=== PATIENT | male | born 1960 | race Caucasian/White ===

== ENCOUNTER 2023-04-27 19:04 | Emergency (ER) | payer BC, SELFPAY ==
[2023-04-27 19:05] VITALS: BP 168/88
[2023-04-27 19:24] LABS: % Basophils 1.1 % (0-2); % Eosinophils 3.3 % (0-6); % Immature Granulocytes 0.7 % (0-0.5); % Lymphocytes 28.8 % (20.5-51.1); % Monocytes 6.4 % (1.7-9.3); % Neutrophils 59.7 % (42.2-75.2); Absolute Basophils 0.1 10^3/uL (0-0.2); Absolute Eosinophils 0.3 10^3/uL (0-0.7); Absolute Immature Granulocytes 0.1 10^3/uL (0-0.05); Absolute Lymphocytes 2.2 10^3/uL (1.2-3.4); Absolute Monocytes 0.5 10^3/uL (0.1-0.6); Absolute Neutrophils 4.5 10^3/uL (1.4-6.5); Hematocrit 41.7 % (39.0-52.0); Hemoglobin 14.9 g/dL (13.0-18.0); Mean Corp Hgb Conc. 35.7 g/dL (33.0-37.0); Mean Corpuscular Hgb 31.8 pg (27.0-31.0); Mean Corpuscular Volume 88.9 fL (80.0-94.0); Mean Platelet Volume 8.3 fL (7.4-10.4); Nucleated Red Blood Cells % 0 % (-); Platelet Count 234 10^3/uL (130-400); Red Blood Cell Count 4.69 10^6/uL (4.70-6.10); Red Cell Dist. Width 12.8 % (11.5-14.5); White Blood Cell Count 7.5 10^3/uL (4.8-10.8)
[2023-04-27 19:40] LABS: ALT (SGPT) 30 U/L (0-50); AST (SGOT) 27 U/L (17-59); Albumin 4.7 g/dl (3.5-5.0); Alkaline Phosphatase 57 U/L (38-126); Blood Urea Nitrogen 33 mg/dl (9-20); Calcium 9.5 mg/dl (8.4-10.2); Carbon Dioxide 29 mmol/L (22-30); Chloride 103 mmol/L (98-107); Glucose 138 mg/dl (70-99); Potassium 4.5 mmol/L (3.5-5.1); Sodium 141 mmol/L (135-145); Total Bilirubin 0.4 mg/dl (0.2-1.3); eGFR > 60.00
[2023-04-27 19:47] LABS: Troponin I < 0.012 ng/ml
[2023-04-27 21:34] VITALS: BP 140/77
[2023-04-27] MEDS: TORADOL 15 MG IV (22:26)
[2023-04-27 22:28] VITALS: BP 121/75
[2023-04-27 23:00] VITALS: BP 138/76
--- NOTE | 2023-04-27 23:52 | ED.GENMED ---
History of Present Illness
General
Chief Complaint: Chest Pain
Source: patient and significant other
Time Seen by Provider: 04/27/23 21:31
Travel History
Have you had any contact with someone who has COVID-19?: No
Do you have any symptoms of coronavirus? Fever > 100 degrees, chills, cough, shortness of breath, sore throat, loss of taste or smell, muscle aches, or headache?: No
History of Present Illness
History of Present Illness:
62-year-old male who presents with pain in his right chest toward his right armpit. Patient states he has been lifting heavy at work was not sure if he strained some. Started feel discomfort around noon. Around dinner he then developed pain when
he swallowed. Also had pain with movement and breathing. Patient states the pain was also worse when he laid back. He denies shortness of breath. No left-sided or central chest pain. No numbness or tingling. No palpitations. No fevers. No
rash.
Past History
Past History
ED Past Medical History: Asthma, CAD, Hypercholesterolemia and Other (History of depression)
ED Past Surgical History: Other (The patient has a history of sinus surgery 20 years ago as well as 2010, and carpal tunnel surgery in 2011)
Social History
Tobacco: Non-smoker
Alcohol: None
Drug: None
Personal:
Living: with family
Employment: Employed
Family History
Family History: Diabetes and Hypertension
Phy Exam
Physical Exam
Physical Exam:
CONSTITUTIONAL Patient alert and oriented to person, place and time. Well-appearing. Vital signs reviewed.
HEAD atraumatic, normocephalic.
EYES eyelids normal to inspection, Pupils equally round and reactive to light, Extraocular muscles intact, Conjunctiva normal, Sclera normal.
NECK normal range of motion, Trachea midline, no jugular venous distention.
RESPIRATORY CHEST No respiratory distress noted, Chest expansion equal, Bilateral breath sounds clear. Moderate right chest wall tenderness up towards the right axilla and right pectoralis major region. Pain with pushing away against force with
the right hand.
CARDIOVASCULAR regular rate and rhythm, Heart sounds normal.
ABDOMEN abdomen nontender, Bowel sounds normal. No distention.
BACK normal inspection, no obvious deformities
UPPER EXTREMITY range of motion normal, Motor strength normal, no cyanosis, no edema.
LOWER EXTREMITY range of motion normal, Motor strength normal, no cyanosis, no edema.
NEURO Speech normal, No focal motor deficits, Daniel coma scale 15, Memory normal, Cranial Nerves intact to screening exam.
SKIN skin warm, dry, and normal in color.
PSYCHIATRIC patient oriented to person place and time, Normal affect.
Scores
Heart Score for Chest Pain Patients
STEMI patient?: Not applicable
Course
Orders/Labs/Results
Orders:
Orders
04/27/23 19:09
Electrocardiogram (*1) Urgent
Reason for Study: Chest Pain
EKG- Treatment ONCE
04/27/23 19:19
Complete Blood Count/With Diff Urgent
Comprehensive Metabolic Panel Urgent
Troponin I Urgent
04/27/23 21:31
CR Chest - 2 Views Urgent
Comment:
Reason For Exam: cp
04/27/23 22:07
Ketorolac [Toradol] 15 mg IV NOW STA
Abnormal Lab Results
04/27/23
19:19
RBC 4.69 L 10^6/uL
(4.70-6.10)
MCH 31.8 H pg
(27.0-31.0)
Abs Immat Gran (auto) 0.1 H 10^3/uL
(0-0.05)
Immature Gran % 0.7 H %
(0-0.5)
BUN 33 H mg/dl
(9-20)
Glucose 138 H mg/dl
(70-99)
04/27/23 19:19
03/07/24 19:19
Vital Signs
Initial and Last Documented VS:
Initial Vital Signs
Temp Pulse Resp BP Pulse Ox
97.9 F 74 16 168/88 98
04/27/23 19:05 04/27/23 19:05 04/27/23 19:05 04/27/23 19:05 04/27/23 19:05
Last Documented Vital Signs
Temp Pulse Resp BP Pulse Ox
97.9 F 67 18 138/76 98
04/27/23 19:05 04/28/23 00:05 04/28/23 00:05 04/27/23 23:00 04/27/23 19:05
MDM/Problems Addressed
MDM/Problems Addressed:
Chest wall pain
*Radiology
Radiology exam reviewed: radiology read reviewed
*Pulse Oximetry
Patient hypoxic: no
*EKG
Interpreted by ED Provider?: Yes
Interpretation: normal
Rate: normal
Rhythm: sinus
[place]: normal axis
Interval: normal interval
Ischemia: no ischemia
*Acquisition Professional Interpretation
Rate: normal
Interpretation: normal
Rhythm: sinus
*Critical Care Note
Total Time (30-74mins, 75-104mins- exclusive of procedures): Not Applicable
Data Reviewed
Source: patient
Further Testing Considered But Not Given:
Considered PE study but no tachycardia. No tachypnea. No hypoxia. No risk factors.
Patient Management
Escalation/DeEscalation of care consider admission/obs:
Patient appears quite well. EKG and troponin negative despite pain all day. Pain is clearly reproducible. Question musculoskeletal etiology. Okay for discharge
ED Attending Note
-
Portions of this chart may have been created with voice recognition software.� Occasional wrong word or��sound alike� substitutions may have occurred due to the inherent limitations of voice recognition software.
Discharge Plan
Departure
Patient Disposition: Home (Routine Discharge)
Date of Disposition: 04/27/23
Time of Disposition: 23:52
Patient with high blood pressure during this ER visit?: No
Discharge Problem:
Atypical chest pain
Instructions: Chest Pain That Is Not Caused by the Heart (DC)
Prescriptions:
No Action
atorvastatin 40 MG tablet
40 mg PO AMHS
cephalexin 500 MG capsule
500 mg PO QID 4 Days 0RF
lorazepam 1 MG tablet
1 mg PO TIDPRN PRN (Reason: pain/spasms) Qty: 40 0RF
hydrocodone-acetaminophen [[place]] 1 EACH tablet
1 ea PO Q6HPRN PRN (Reason: pain) 10 Days Qty: 30 0RF
amlodipine 2.5 MG tablet
2.5 mg PO BID Qty: 60 2RF
Rx Instructions:
hold systolic blood pressure <130
aspirin 81 MG tablet,delayed release (DR/EC)
81 mg PO DAILY Qty: 1 0RF
Rx Instructions:
RESUME 02/20/2018
hydrocodone-acetaminophen [[place]] 1 EACH tablet
1 ea PO Q4HPRN PRN (Reason: severe pain) Qty: 10 0RF
cyclobenzaprine 10 MG tablet
10 mg PO TIDPRN PRN (Reason: back pain) Qty: 15 0RF
prednisone 50 MG tablet
50 mg PO DAILY Qty: 5 0RF
ibuprofen 800 MG tablet
800 mg PO Q6HPRN PRN (Reason: pain) Qty: 30 0RF
Referrals:
Destiny Douglas CRNP [Family Provider] -
Activity Restrictions/Additional Instructions:
Please use ibuprofen as needed for pain control. Return immediately for worsening pain, shortness of breath, vomiting, weakness of any kind or any other concerns.
Interventions
Interventions:
*Risk Screen - Suicide Last Done: 04/27/23 19:05
*General Assessment Last Done: 04/27/23 22:30
*Neglect/Abuse Screening Last Done: 04/27/23 21:57
ED- Fall Risk Assessment Last Done: 04/28/23 00:11
*ED COVID-19 Vaccine History Last Done: 04/27/23 19:05
*Nursing Disposition Last Done: 04/28/23 00:11
ED- Cardiac Assessment Last Done: 04/27/23 21:56
Discharge Date and Time
Discharge Date/Time: 04/28/23 00:12
== END 2023-04-28 00:12 | disposition home or self-care (01) ==
LOC: EMR 19:04
PROVIDERS: Emergency Medicine; EMERGENCY PHYSICIAN Emergency Medicine; FAMILY PHYSICIAN Nurse Practitioner Family
DX: R07.89 Other chest pain (principal); J45.909 Unspecified asthma, uncomplicated; I25.10 Atherosclerotic heart disease of native coronary artery without angina pectoris; E78.00 Pure hypercholesterolemia, unspecified; F32.A Depression, unspecified
CPT/HCPCS: 99283; 96374; 71046; 80053; 84484; 85025; 93005

== ENCOUNTER → 2023-05-24 12:11 | Outpatient (REF) | payer BC, SELFPAY | LOC: DHCBC/DCA 12:11 | PROVIDERS: ATTENDING PHYSICIAN Internal Medicine Cardiovascular Disease; FAMILY PHYSICIAN Family Medicine | DX: R06.00 Dyspnea, unspecified (principal) | CPT/HCPCS: 78452; 93017; A9500; J2785 ==

== ENCOUNTER → 2023-05-30 06:43 | Outpatient (REF) | payer BC, SELFPAY | LOC: RAD 06:43 | PROVIDERS: ATTENDING PHYSICIAN Surgery; FAMILY PHYSICIAN Nurse Practitioner Family | DX: R10.11 Right upper quadrant pain (principal) | CPT/HCPCS: 76700 ==

== ENCOUNTER 2023-06-02 06:02 | Day surgery (SDC) | payer BC, SELFPAY ==
[2023-05-30 12:52] VITALS: BMI 40.0
[2023-05-30 13:15] LABS: % Basophils 0.7 % (0-2); % Eosinophils 2.3 % (0-6); % Immature Granulocytes 0.4 % (0-0.5); % Lymphocytes 22.1 % (20.5-51.1); % Monocytes 7.8 % (1.7-9.3); % Neutrophils 66.7 % (42.2-75.2); Absolute Basophils 0.1 10^3/uL (0-0.2); Absolute Eosinophils 0.2 10^3/uL (0-0.7); Absolute Lymphocytes 1.5 10^3/uL (1.2-3.4); Absolute Monocytes 0.5 10^3/uL (0.1-0.6); Absolute Neutrophils 4.6 10^3/uL (1.4-6.5); Hematocrit 42.1 % (39.0-52.0); Mean Corp Hgb Conc. 35.6 g/dL (33.0-37.0); Mean Corpuscular Hgb 31.5 pg (27.0-31.0); Mean Corpuscular Volume 88.4 fL (80.0-94.0); Mean Platelet Volume 8.5 fL (7.4-10.4); Nucleated Red Blood Cells % 0 % (-); Platelet Count 222 10^3/uL (130-400); Red Blood Cell Count 4.76 10^6/uL (4.70-6.10); Red Cell Dist. Width 12.7 % (11.5-14.5); White Blood Cell Count 6.9 10^3/uL (4.8-10.8)
[2023-05-30 13:50] LABS: ALT (SGPT) 36 U/L (0-50); AST (SGOT) 28 U/L (17-59); Albumin 4.6 g/dl (3.5-5.0); Alkaline Phosphatase 57 U/L (38-126); Blood Urea Nitrogen 33 mg/dl (9-20); Calcium 9.4 mg/dl (8.4-10.2); Carbon Dioxide 24 mmol/L (22-30); Chloride 106 mmol/L (98-107); Estimated Creatinine Clearance 99 ml/min; Glucose 106 mg/dl (70-99); Potassium 4.4 mmol/L (3.5-5.1); Sodium 136 mmol/L (135-145); Total Bilirubin 0.4 mg/dl (0.2-1.3); Total Protein 6.9 g/dl (6.3-8.2); eGFR > 60.00
[2023-06-02] VITALS (8 sets, daily range): BP systolic 115–141; BP diastolic 69–87; BMI 38.4
[2023-06-02] MEDS: NSS 324 ML IV (06:49)
--- NOTE | 2023-06-02 08:39 | ITS.CL.CATH ---
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
Cardiac Catheterization
Procedure Report:
CARDIAC CATHETERIZATION REPORT
Date of Procedure: 06/02/2023
Referring: Regino Bowling MD
Indication: Ischemic stress test with exertional dyspnea
HEMODYNAMIC DATA
AO: 110/70
LV: 124/18
Pullback done twice shows mean gradient of 11 mmHg consistent with mild
LEFT VENTRICULOGRAPHY: Normal ventricular wall motion with EF 62%
CORONARY ANGIOGRAPHY
Dominance: Right
Left Main: Normal
LAD: 30% mid stenosis with 40% mid to distal stenosis and multiple lesions to 50% in the distal and apical LAD. D1 and D2 have trivial luminal disease
Circumflex: There is a large ramus intermedius with 40-50% ostial/proximal stenosis. This vessel bifurcates distally and there is a 50% stenosis in the much smaller daughter branch. The circumflex proper has mild luminal irregularities. OM1 is
tiny with ostial disease. OM 2 and OM 3 are medium sized vessels and the circumflex terminates with a small left posterolateral branch.
RCA: The RCA is dominant. There is 30% mid stenosis. The medium sized RPDA has 60-70% ostial stenosis. The RCA terminates with a medium sized posterolateral branch with 30% proximal stenosis. There is a RV branch originating from the very
proximal RCA which is severe segmental disease
Closure Device: None-the procedure was performed via the right radial artery. The Pete's test was normal prior to the procedure.
Radiation (mGy): 570
DAP (cm2.Gy): 56.1
Fluoroscopy time: 4.4 minutes
CONCLUSIONS
1: Moderate triple-vessel CAD as described
2: Normal left ventricular function with EF 62%
3. Possible mild aortic stenosis-this should be evaluated with echocardiography. Last echo in 2019 did not suggest an aortic valve gradient
4. Recommend medical therapy with attention to aggressive risk factor modification. Target LDL for Tuan should be less than 55
Copy to: Regino Bowling MD, Blanca Quintana,
Regino Bowling MD, [facility], [facility]
== END 2023-06-02 11:30 | disposition home or self-care (01) ==
LOC: CATH 06:02
PROVIDERS: ATTENDING PHYSICIAN Internal Medicine Cardiovascular Disease; FAMILY PHYSICIAN Family Medicine
DX: I25.10 Atherosclerotic heart disease of native coronary artery without angina pectoris (principal); R06.09 Other forms of dyspnea; R94.39 Abnormal result of other cardiovascular function study; E78.5 Hyperlipidemia, unspecified; I10 Essential (primary) hypertension; Z79.82 Long term (current) use of aspirin; K21.9 Gastro-esophageal reflux disease without esophagitis
CPT/HCPCS: 36415; 80053; 85025; 93005; 93458; C1894; Q9967

== ENCOUNTER → 2023-06-13 15:38 | Outpatient (REF) | payer BC, SELFPAY | LOC: RCS 15:38 | PROVIDERS: ATTENDING PHYSICIAN Internal Medicine Cardiovascular Disease; FAMILY PHYSICIAN Family Medicine | DX: R06.00 Dyspnea, unspecified (principal); I10 Essential (primary) hypertension | CPT/HCPCS: 93306 ==

== ENCOUNTER → 2023-06-19 06:15 | Outpatient (REF) | payer BC, SELFPAY ==
[2023-06-19 07:01] LABS: % Basophils 0.5 % (0-2); % Eosinophils 3.8 % (0-6); % Immature Granulocytes 0.9 % (0-0.5); % Monocytes 9.7 % (1.7-9.3); % Neutrophils 54.1 % (42.2-75.2); Absolute Eosinophils 0.2 10^3/uL (0-0.7); Absolute Immature Granulocytes 0.1 10^3/uL (0-0.05); Absolute Lymphocytes 1.8 10^3/uL (1.2-3.4); Absolute Monocytes 0.6 10^3/uL (0.1-0.6); Absolute Neutrophils 3.1 10^3/uL (1.4-6.5); Hematocrit 42.6 % (39.0-52.0); Mean Corp Hgb Conc. 35.2 g/dL (33.0-37.0); Mean Corpuscular Hgb 31.2 pg (27.0-31.0); Mean Corpuscular Volume 88.6 fL (80.0-94.0); Mean Platelet Volume 8.7 fL (7.4-10.4); Nucleated Red Blood Cells % 0 % (-); Platelet Count 217 10^3/uL (130-400); Red Blood Cell Count 4.81 10^6/uL (4.70-6.10); Red Cell Dist. Width 12.5 % (11.5-14.5); White Blood Cell Count 5.8 10^3/uL (4.8-10.8)
[2023-06-19 07:28] LABS: ALT (SGPT) 38 U/L (0-50); AST (SGOT) 28 U/L (17-59); Albumin 4.4 g/dl (3.5-5.0); Alkaline Phosphatase 56 U/L (38-126); Blood Urea Nitrogen 26 mg/dl (9-20); Calcium 9.6 mg/dl (8.4-10.2); Carbon Dioxide 22 mmol/L (22-30); Chloride 108 mmol/L (98-107); Glucose 143 mg/dl (70-99); HDL Cholesterol 63 mg/dl; LDL Cholesterol, Calculated 58 mg/dl; Potassium 4.1 mmol/L (3.5-5.1); Sodium 138 mmol/L (135-145); Total Bilirubin 0.5 mg/dl (0.2-1.3); Total Cholesterol 137 mg/dl (50-199); Total Protein 6.6 g/dl (6.3-8.2); Triglyceride 83 mg/dl (10-149); Very Low Density Lipoprotein 16 mg/dl (0-30); eGFR > 60.00
[2023-06-19 07:32] LABS: C-Reactive Protein < 5.00 mg/L (0.0-10.00)
[2023-06-19 07:51] LABS: Erythrocyte Sed Rate 7 mm/hour (0-20)
[2023-06-19 08:10] LABS: PSA, Total - Screen 0.67 ng/ml (0.0-4.0); TSH Reflex To Free T4 1.19 uIU/ml (0.47-4.68)
[2023-06-19 09:30] LABS: Glycohemoglobin (HgbA1c) 5.9 % (4.0-5.6)
== END ==
LOC: REG 06:15
PROVIDERS: ATTENDING PHYSICIAN Internal Medicine Cardiovascular Disease; FAMILY PHYSICIAN Nurse Practitioner Family; REFERRING PHYSICIAN Internal Medicine Rheumatology
DX: Z00.00 Encounter for general adult medical examination without abnormal findings (principal); E78.5 Hyperlipidemia, unspecified; M06.09 Rheumatoid arthritis without rheumatoid factor, multiple sites
CPT/HCPCS: 36415; 80053; 80061; 83036; 84443; 85025; 85652; 86140; G0103

== ENCOUNTER → 2023-09-11 06:32 | Outpatient (REF) | payer BC, SELFPAY ==
[2023-09-11 07:01] LABS: % Basophils 0.8 % (0-2); % Eosinophils 3.9 % (0-6); % Immature Granulocytes 0.7 % (0-0.5); % Lymphocytes 22.7 % (20.5-51.1); % Monocytes 9.9 % (1.7-9.3); Absolute Basophils 0.1 10^3/uL (0-0.2); Absolute Eosinophils 0.2 10^3/uL (0-0.7); Absolute Lymphocytes 1.4 10^3/uL (1.2-3.4); Absolute Monocytes 0.6 10^3/uL (0.1-0.6); Absolute Neutrophils 3.7 10^3/uL (1.4-6.5); Hematocrit 42.2 % (39.0-52.0); Hemoglobin 14.8 g/dL (13.0-18.0); Mean Corp Hgb Conc. 35.1 g/dL (33.0-37.0); Mean Corpuscular Hgb 32.5 pg (27.0-31.0); Mean Corpuscular Volume 92.5 fL (80.0-94.0); Mean Platelet Volume 8.7 fL (7.4-10.4); Nucleated Red Blood Cells % 0 % (-); Platelet Count 217 10^3/uL (130-400); Red Blood Cell Count 4.56 10^6/uL (4.70-6.10); Red Cell Dist. Width 13.5 % (11.5-14.5)
[2023-09-11 07:26] LABS: ALT (SGPT) 30 U/L (0-50); AST (SGOT) 24 U/L (17-59); Albumin 4.5 g/dl (3.5-5.0); Alkaline Phosphatase 59 U/L (38-126); Blood Urea Nitrogen 27 mg/dl (9-20); Calcium 9.9 mg/dl (8.4-10.2); Carbon Dioxide 25 mmol/L (22-30); Chloride 108 mmol/L (98-107); Glucose 119 mg/dl (70-99); HDL Cholesterol 50 mg/dl; LDL Cholesterol, Calculated 79 mg/dl; Potassium 4.4 mmol/L (3.5-5.1); Sodium 142 mmol/L (135-145); Total Bilirubin 0.4 mg/dl (0.2-1.3); Total Cholesterol 156 mg/dl (50-199); Total Protein 6.4 g/dl (6.3-8.2); Triglyceride 137 mg/dl (10-149); Very Low Density Lipoprotein 27 mg/dl (0-30); eGFR > 60.00
[2023-09-11 07:29] LABS: C-Reactive Protein < 5.00 mg/L (0.0-10.00)
[2023-09-11 09:05] LABS: Glycohemoglobin (HgbA1c) 5.5 % (4.0-5.6)
[2023-09-11 10:51] LABS: Erythrocyte Sed Rate 9 mm/hour (0-20)
== END ==
LOC: REG 06:32
PROVIDERS: ATTENDING PHYSICIAN Internal Medicine Rheumatology; FAMILY PHYSICIAN Nurse Practitioner Family
DX: R73.03 Prediabetes (principal); E78.2 Mixed hyperlipidemia; M06.09 Rheumatoid arthritis without rheumatoid factor, multiple sites
CPT/HCPCS: 36415; 80053; 80061; 83036; 85025; 85652; 86140

== ENCOUNTER → 2023-11-29 16:58 | Outpatient (REF) | payer BC, SELFPAY | LOC: RAD 16:58 | PROVIDERS: ATTENDING PHYSICIAN Nurse Practitioner Family | DX: S93.402A Sprain of unspecified ligament of left ankle, initial encounter (principal) | CPT/HCPCS: 73610; 73630 ==

== ENCOUNTER 2023-12-16 09:53 | Emergency (ER) | payer BC, SELFPAY ==
[2023-12-16 09:54] VITALS: BP 157/98
[2023-12-16 11:52] VITALS: BP 149/89
--- NOTE | 2023-12-16 15:02 | ED.GENMED ---
History of Present Illness
General
Chief Complaint: Musculo-Skeletal Complaint
Source: patient
Exam Limitations: none
Time Seen by Provider: 12/16/23 10:11
Nursing documentation reviewed up to this point in time: agreed with
History of Present Illness
History of Present Illness:
63 y/o M with L foot pain x 2 weeks
was here after foot injury 2 weeks ago and had xrays ordered by PCP showing some bone spurs and OA and calcific tendinitis
pt was wearing a home brace which was helping
he was putting ice on it etc
and feeling better
then last night got out of his car at a friends house and went to step on a step and misjudged causing him to tweak it and he felt a pop underneath the foot and since has had a lot of pain ful weight bearing and some swelling
no numbness/tingling
has appt with dr. ramirez next week
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
Past History
Past History
ED Past Medical History: Asthma, CAD, Hypercholesterolemia and Other (History of depression)
ED Past Surgical History: Other (The patient has a history of sinus surgery 20 years ago as well as 2010, and carpal tunnel surgery in 2011)
Social History
Tobacco: Non-smoker
Alcohol: None
Drug: None
Personal:
Living: with family
Employment: Employed
Family History
Family History: Diabetes and Hypertension
Review of Systems
Review of Systems
Allergies reviewed?: Yes
All Other Systems: Not applicable
Phy Exam
Physical Exam
Physical Exam:
GENERAL: Alert , in no apparent distress, comfortable at rest
HEAD: NCAT
CV: 2+ DP PULSES B/L
NEUROLOGICAL: Alert and oriented, no focal neuro deficits, , 5/5 strength, sensation intact, ambulation slight limp right leg
SKIN: Warm and dry,
MUSCULOSKELETAL: ankle slightly swollen L with some tenderness medial atnerior mall tip
most tenderness is arch of the midfoot and the insertion point o fplantar fascia; mild STS
no bruising
normal perfusion
normal strength
full ROM
PSYCH: Normal and appropriate interaction.
Course
Orders/Labs/Results
Orders:
Orders
12/16/23 09:57
Foot, Left 3 View [CR Foot - Left Min 3 Views] Urgent
Comment:
Reason For Exam: injury
12/16/23 11:05
Ankle, left 3 view CR [CR Ankle - Left Min 3 Views ] Urgent
Comment:
Reason For Exam: left ankle pain
Vital Signs
Initial and Last Documented VS:
Initial Vital Signs
Temp Pulse Resp BP Pulse Ox
98.4 F 60 16 157/98 98
12/16/23 09:54 12/16/23 09:54 12/16/23 09:54 12/16/23 09:54 12/16/23 09:54
Last Documented Vital Signs
Temp Pulse Resp BP Pulse Ox
98.4 F 77 16 149/89 99
12/16/23 09:54 12/16/23 11:52 12/16/23 11:52 12/16/23 11:52 12/16/23 11:52
MDM/Problems Addressed
Differential Diagnosis Includes:
sprain, plantar fasciitis, calcific tendinitis
MDM/Problems Addressed:
63 y/o M with foot pain after missing a step
alreaady dealing with a foot injury which was feeling better until last night
has mostly plantar pain
some STS
normal strnegth and sensation
tender plantar fascia
mild arch tenderness and ankle tenderness
xryas indep reviewed, has a lot of spurs but no fx
did well in a short ankle boot
f/u ortho
appreciate chronic HTN
likeyl in setting of pain
astymaptmatic
stable
*Critical Care Note
Total Time (30-74mins, 75-104mins- exclusive of procedures): Not Applicable
ED Attending Note
-
Portions of this chart may have been created with voice recognition software.� Occasional wrong word or��sound alike� substitutions may have occurred due to the inherent limitations of voice recognition software.
Discharge Plan
Departure
Patient Disposition: Home (Routine Discharge)
Date of Disposition: 12/16/23
Time of Disposition: 11:40
Patient with high blood pressure during this ER visit?: Yes
Condition: Fair
Covid-19: Not Applicable
Discharge Problem:
Plantar fasciitis, Foot sprain
Instructions: Heel Pain Caused by Plantar Fasciitis (DC), Sprain (DC)
Prescriptions:
No Action
aspirin 81 MG tablet,delayed release (DR/EC)
81 mg PO DAILY Qty: 1 0RF
meloxicam 15 mg Tablet
15 mg PO DAILY PRN (Reason: pain)
folic acid 1 mg Tablet
1 mg PO DAILY
magnesium 250 mg Tablet
250 mg PO DAILY
albuterol sulfate 90 mcg/actuation Hfa Aerosol Inhaler
1 puff INHALATION Q4 PRN (Reason: SOB)
omega-3 fatty acids Capsule
1,250 mg PO DAILY
Simponi ARIA 12.5 mg/mL Solution
212 mg IV Q8W
methotrexate 2.5 mg/mL Solution
20 mg PO QWEEK
atorvastatin 80 mg tablet
80 mg PO QPM Qty: 90 5RF
nitroglycerin 0.4 mg tablet, sublingual
0.4 mg sublingual [id number] PRN (Reason: chest pain) Qty: 25 5RF
Referrals:
Destiny Douglas CRNP [Family Provider] -
Stand Alone Forms: Return to Work
Activity Restrictions/Additional Instructions:
Your foot pain could be from a combination of plantar fasciitis as well as a foot sprain. Ice off-and-on today.
Try to stay off of it. Use the boot when you walk around. Follow-up with Dr. Jose as planned. Take Tylenol for pain 3 times a day.
Return for any concerns
Interventions
Interventions:
*Risk Screen - Suicide Last Done: 12/16/23 09:54
*General Assessment Last Done: 12/16/23 09:54
*Neglect/Abuse Screening Last Done: 12/16/23 09:54
ED- Fall Risk Assessment Last Done: 12/16/23 10:12
*ED COVID-19 Vaccine History Last Done: 12/16/23 10:11
*Nursing Disposition Last Done: 12/16/23 11:52
ED-Musculoskeletal Assessment Last Done: 12/16/23 10:12
Discharge Date and Time
Discharge Date/Time: 12/16/23 11:53
Print Language: FAROESE
== END 2023-12-16 11:53 | disposition home or self-care (01) ==
LOC: EMR 09:53
PROVIDERS: EMERGENCY PHYSICIAN Emergency Medicine; FAMILY PHYSICIAN Nurse Practitioner Family
DX: M72.2 Plantar fascial fibromatosis (principal); S93.602A Unspecified sprain of left foot, initial encounter; X50.1XXA Overexertion from prolonged static or awkward postures, initial encounter; M77.8 Other enthesopathies, not elsewhere classified; M65.272 Calcific tendinitis, left ankle and foot; M19.90 Unspecified osteoarthritis, unspecified site; J45.909 Unspecified asthma, uncomplicated; I25.10 Atherosclerotic heart disease of native coronary artery without angina pectoris; F32.A Depression, unspecified; K57.90 Diverticulosis of intestine, part unspecified, without perforation or abscess without bleeding; I10 Essential (primary) hypertension; Z86.73 Personal history of transient ischemic attack (TIA), and cerebral infarction without residual deficits
CPT/HCPCS: 99283; 73610; 73630

== ENCOUNTER 2023-12-21 16:47 | Outpatient (RCR) | payer BC, SELFPAY | END 2023-12-21 23:59 | disposition home or self-care (01) | LOC: RPT 16:47 | PROVIDERS: ATTENDING PHYSICIAN Nurse Practitioner Family | DX: S93.402S Sprain of unspecified ligament of left ankle, sequela (principal); Z73.6 Limitation of activities due to disability | CPT/HCPCS: 97140; 97162; 97530 ==

== ENCOUNTER 2024-01-17 14:51 | Outpatient (RCR) | payer BC, SELFPAY | END 2024-01-17 23:59 | disposition home or self-care (01) | LOC: RPT 14:51 | PROVIDERS: ATTENDING PHYSICIAN Nurse Practitioner Family | DX: S93.402S Sprain of unspecified ligament of left ankle, sequela (principal); Z73.6 Limitation of activities due to disability | CPT/HCPCS: 97110; 97112; 97140; 97530 ==

== ENCOUNTER → 2024-02-19 12:08 | Outpatient (REF) | payer BC, SELFPAY ==
[2024-02-19 13:08] LABS: Hematocrit 46.4 % (39.0-52.0); Hemoglobin 16.1 g/dL (13.0-18.0); Mean Corp Hgb Conc. 34.7 g/dL (33.0-37.0); Mean Corpuscular Hgb 32.7 pg (27.0-31.0); Mean Corpuscular Volume 94.3 fL (80.0-94.0); Mean Platelet Volume 8.9 fL (7.4-10.4); Platelet Count 233 10^3/uL (130-400); Red Blood Cell Count 4.92 10^6/uL (4.70-6.10); Red Cell Dist. Width 12.8 % (11.5-14.5); White Blood Cell Count 8.6 10^3/uL (4.8-10.8)
[2024-02-19 13:32] LABS: C-Reactive Protein < 5.00 mg/L (0.0-10.00)
[2024-02-19 13:45] LABS: ALT (SGPT) 37 U/L (0-50); AST (SGOT) 27 U/L (17-59); Albumin 5.1 g/dl (3.5-5.0); Alkaline Phosphatase 54 U/L (38-126); Blood Urea Nitrogen 29 mg/dl (9-20); Calcium 10.2 mg/dl (8.4-10.2); Carbon Dioxide 23 mmol/L (22-30); Chloride 103 mmol/L (98-107); Glucose 107 mg/dl (70-99); Potassium 4.2 mmol/L (3.5-5.1); Sodium 138 mmol/L (135-145); Total Bilirubin 0.4 mg/dl (0.2-1.3); Total Protein 7.3 g/dl (6.3-8.2); eGFR > 60.00
[2024-02-19 14:15] LABS: Erythrocyte Sed Rate 9 mm/hour (0-20)
== END ==
LOC: REG 12:08
PROVIDERS: ATTENDING PHYSICIAN Internal Medicine Rheumatology; FAMILY PHYSICIAN Nurse Practitioner Family
DX: M06.09 Rheumatoid arthritis without rheumatoid factor, multiple sites (principal)
CPT/HCPCS: 36415; 80053; 85027; 85652; 86140

== ENCOUNTER 2024-02-19 15:07 | Outpatient (RCR) | payer BC, SELFPAY | END 2024-02-19 23:59 | disposition home or self-care (01) | LOC: RPT 15:07 | PROVIDERS: ATTENDING PHYSICIAN Nurse Practitioner Family | DX: S93.402S Sprain of unspecified ligament of left ankle, sequela (principal); Z73.6 Limitation of activities due to disability | CPT/HCPCS: 97110; 97112; 97140 ==

== ENCOUNTER 2024-03-19 16:13 | Outpatient (RCR) | payer BC, SELFPAY | END 2024-03-19 23:59 | disposition home or self-care (01) | LOC: RPT 16:13 | PROVIDERS: ATTENDING PHYSICIAN Nurse Practitioner Family | DX: S93.402S Sprain of unspecified ligament of left ankle, sequela (principal); Z73.6 Limitation of activities due to disability | CPT/HCPCS: 97110; 97140 ==

== ENCOUNTER 2024-04-03 11:08 | Emergency (ER) | payer SELFPAY ==
[2024-04-03 11:14] VITALS: BP 144/87
--- NOTE | 2024-04-03 13:29 | ED.GENMED ---
History of Present Illness
General
Chief Complaint: Head Injury
Source: patient
Exam Limitations: none
Time Seen by Provider: 04/03/24 11:41
Nursing documentation reviewed up to this point in time: agreed with
History of Present Illness
History of Present Illness:
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 He denies loss of consciousness but afterwards felt nauseous and felt like he had
difficulty focusing. Does have a headache. He is on blood thinners. He denies any lacerations.He does feel sore in his neck but has history of neck surgery in the past.
Past History
Past History
ED Past Medical History: Asthma, CAD, Hypercholesterolemia and Other (History of depression)
ED Past Surgical History: Other (The patient has a history of sinus surgery 20 years ago as well as 2010, and carpal tunnel surgery in 2011)
Social History
Tobacco: Non-smoker
Alcohol: None
Drug: None
Personal:
Living: with family
Employment: Employed
Family History
Family History: Diabetes and Hypertension
Review of Systems
Review of Systems
Allergies reviewed?: Yes
All Other Systems: ROS reviewed and negative except as documented in HPI and ROS
Constitutional: Reports no symptoms
EENT: Reports other (had difficulty focusing )
Respiratory: Reports no symptoms
Cardiac: Reports no symptoms
ABD/GI: Reports nausea
: Reports no symptoms
Musculoskeletal: Reports neck pain (neck is sore )
Skin: Reports no symptoms
Psychiatric: Reports no symptoms
Phy Exam
General Physical Exam
General Presentation: no apparent distress
General age: appears stated age
General Skin: warm and dry
General Habitus: normal
General Mental: alert
General Hydration: appears well hydrated
Eye Exam
Eye Exam: PERRL and EOMI
Eye Exam General: PERRL: bilateral and EOM intact: bilateral
Pupil Exam: Bilateral: round and reactive
Neurological Exam
Neurological Exam: alert, oriented x3, no motor deficits and no sensory deficits
Musculoskeletal Exam
Musculoskeletal Exam: full ROM and other (Mildly sore to posterior neck muscles)
Skin Exam
Skin Exam: normal color and warm/dry
Psychiatric Exam
Psychiatric Exam: normal mood/affect
Course
Orders/Labs/Results
Orders:
Orders
04/03/24 12:59
CT Head W/o Iv Contrast Urgent
Comment:
Reason For Exam: trauma
04/03/24 13:00
CT Cervical Spine W/o Iv Contr Urgent
Comment:
Reason For Exam: trauma
04/03/24 14:22
Acetaminophen [Tylenol] 1,000 mg PO NOW STA
Vital Signs
Initial and Last Documented VS:
Initial Vital Signs
Temp Pulse Resp BP Pulse Ox
98.5 F 70 16 144/87 99
04/03/24 11:14 04/03/24 11:14 04/03/24 11:14 04/03/24 11:14 04/03/24 11:14
Last Documented Vital Signs
Temp Pulse Resp BP Pulse Ox
98.5 F 70 16 144/87 99
04/03/24 11:14 04/03/24 11:14 04/03/24 11:14 04/03/24 11:14 04/03/24 11:14
MDM/Problems Addressed
Differential Diagnosis Includes:
Not limited to intracranial hemorrhage concussion, cervical strain versus fracture
MDM/Problems Addressed:
Symptoms are consistent with mild concussion CT head and cervical spine negative for acute findings
Will DC with supportive care for concussion. Patient is on meloxicam therefore will take Tylenol for symptoms. He is not on blood thinners .he has a normal neurologic exam
*Radiology
Radiology exam reviewed: radiology read reviewed
*Pulse Oximetry
Patient hypoxic: no
*Critical Care Note
Total Time (30-74mins, 75-104mins- exclusive of procedures): Not Applicable
ED Attending Note
-
Portions of this chart may have been created with voice recognition software.� Occasional wrong word or��sound alike� substitutions may have occurred due to the inherent limitations of voice recognition software.
Discharge Plan
Departure
Patient Disposition: Home (Routine Discharge)
Date of Disposition: 04/03/24
Time of Disposition: 14:26
Patient with high blood pressure during this ER visit?: Yes
Condition: Fair
Covid-19: Not Applicable
Discharge Problem:
Concussion, Cervical muscle strain
Instructions: Concussion, Adult (DC), Cervical Sprain ED, BLOOD PRESSURE
Prescriptions:
No Action
aspirin 81 MG tablet,delayed release (DR/EC)
81 mg PO DAILY Qty: 1 0RF
meloxicam 15 mg Tablet
15 mg PO DAILY PRN (Reason: pain)
folic acid 1 mg Tablet
1 mg PO DAILY
magnesium 250 mg Tablet
250 mg PO DAILY
albuterol sulfate 90 mcg/actuation Hfa Aerosol Inhaler
1 puff INHALATION Q4 PRN (Reason: SOB)
omega-3 fatty acids Capsule
1,250 mg PO DAILY
Simponi ARIA 12.5 mg/mL Solution
212 mg IV Q8W
methotrexate 2.5 mg/mL Solution
20 mg PO QWEEK
atorvastatin 80 mg tablet
80 mg PO QPM Qty: 90 5RF
nitroglycerin 0.4 mg tablet, sublingual
0.4 mg sublingual [id number] PRN (Reason: chest pain) Qty: 25 5RF
Referrals:
Destiny Douglas CRNP [Family Provider] -
Stand Alone Forms: Return to Work
Activity Restrictions/Additional Instructions:
As discussed you may take Tylenol for symptoms. Follow-up with work health in the next 1 to 2 days. Return if any worsening of symptoms.
Interventions
Interventions:
*Risk Screen - Suicide Last Done: 04/03/24 11:14
*General Assessment Last Done: 04/03/24 11:14
*Neglect/Abuse Screening Last Done: 04/03/24 11:14
Discharge Date and Time
Print Language: SWEDISH
[2024-04-03] MEDS: TYLENOL 1000 MG PO (15:20)
== END 2024-04-03 15:29 | disposition home or self-care (01) ==
LOC: EMR 11:08
PROVIDERS: EMERGENCY PHYSICIAN Student in an Organized Health Care Education/Training Program; FAMILY PHYSICIAN Nurse Practitioner Family
DX: S06.0XAA Concussion with loss of consciousness status unknown, initial encounter (principal); S16.1XXA Strain of muscle, fascia and tendon at neck level, initial encounter; W22.8XXA Striking against or struck by other objects, initial encounter; J45.909 Unspecified asthma, uncomplicated; I25.10 Atherosclerotic heart disease of native coronary artery without angina pectoris; E78.00 Pure hypercholesterolemia, unspecified; Z79.01 Long term (current) use of anticoagulants; Z82.49 Family history of ischemic heart disease and other diseases of the circulatory system; Z83.3 Family history of diabetes mellitus
CPT/HCPCS: 99284; 70450; 72125

== ENCOUNTER → 2024-05-08 07:14 | Outpatient (REF) | payer BC, SELFPAY ==
[2024-05-08 08:23] LABS: % Basophils 0.9 % (0-2); % Immature Granulocytes 0.7 % (0-0.5); % Lymphocytes 20.3 % (20.5-51.1); % Monocytes 9.4 % (1.7-9.3); % Neutrophils 64.7 % (42.2-75.2); Absolute Basophils 0.1 10^3/uL (0-0.2); Absolute Eosinophils 0.2 10^3/uL (0-0.7); Absolute Lymphocytes 1.1 10^3/uL (1.2-3.4); Absolute Monocytes 0.5 10^3/uL (0.1-0.6); Absolute Neutrophils 3.6 10^3/uL (1.4-6.5); Hematocrit 45.4 % (39.0-52.0); Hemoglobin 15.7 g/dL (13.0-18.0); Mean Corp Hgb Conc. 34.6 g/dL (33.0-37.0); Mean Corpuscular Hgb 32.9 pg (27.0-31.0); Mean Corpuscular Volume 95.2 fL (80.0-94.0); Mean Platelet Volume 8.6 fL (7.4-10.4); Nucleated Red Blood Cells % 0 % (-); Platelet Count 233 10^3/uL (130-400); Red Blood Cell Count 4.77 10^6/uL (4.70-6.10); Red Cell Dist. Width 13.2 % (11.5-14.5); White Blood Cell Count 5.5 10^3/uL (4.8-10.8)
[2024-05-08 08:39] LABS: C-Reactive Protein < 5.00 mg/L (0.0-10.00)
[2024-05-08 09:01] LABS: Erythrocyte Sed Rate 8 mm/hour (0-20)
[2024-05-08 09:07] LABS: ALT (SGPT) 54 U/L (0-50); AST (SGOT) 32 U/L (17-59); Albumin 4.4 g/dl (3.5-5.0); Alkaline Phosphatase 59 U/L (38-126); Blood Urea Nitrogen 40 mg/dl (9-20); Calcium 9.4 mg/dl (8.4-10.2); Carbon Dioxide 24 mmol/L (22-30); Chloride 105 mmol/L (98-107); Glucose 109 mg/dl (70-99); Potassium 4.6 mmol/L (3.5-5.1); Sodium 139 mmol/L (135-145); Total Bilirubin 0.5 mg/dl (0.2-1.3); Total Protein 6.6 g/dl (6.3-8.2); eGFR > 60.00
== END ==
LOC: REG 07:14
PROVIDERS: ATTENDING PHYSICIAN Nurse Practitioner Family; FAMILY PHYSICIAN Physician Assistant
DX: M06.09 Rheumatoid arthritis without rheumatoid factor, multiple sites (principal); Z51.81 Encounter for therapeutic drug level monitoring
CPT/HCPCS: 36415; 80053; 85025; 85652; 86140

== ENCOUNTER 2024-07-16 06:31 | Outpatient (RCR) | payer BC, SELFPAY | END 2024-07-16 23:59 | disposition home or self-care (01) | LOC: RPT 06:31 | PROVIDERS: ATTENDING PHYSICIAN Student in an Organized Health Care Education/Training Program; FAMILY PHYSICIAN Nurse Practitioner Family | DX: M76.60 Achilles tendinitis, unspecified leg (principal); Z73.6 Limitation of activities due to disability | CPT/HCPCS: 97010; 97140; 97161; 97530 ==

== ENCOUNTER → 2024-07-30 06:38 | Outpatient (REF) | payer BC, SELFPAY ==
[2024-07-30 07:04] LABS: % Basophils 0.9 % (0-2); % Eosinophils 4.7 % (0-6); % Immature Granulocytes 0.3 % (0-0.5); % Lymphocytes 27.9 % (20.5-51.1); % Monocytes 9.9 % (1.7-9.3); % Neutrophils 56.3 % (42.2-75.2); Absolute Basophils 0.1 10^3/uL (0-0.2); Absolute Eosinophils 0.3 10^3/uL (0-0.7); Absolute Lymphocytes 1.6 10^3/uL (1.2-3.4); Absolute Monocytes 0.6 10^3/uL (0.1-0.6); Absolute Neutrophils 3.3 10^3/uL (1.4-6.5); Hemoglobin 15.1 g/dL (13.0-18.0); Mean Corp Hgb Conc. 34.3 g/dL (33.0-37.0); Mean Corpuscular Hgb 32.8 pg (27.0-31.0); Mean Corpuscular Volume 95.7 fL (80.0-94.0); Mean Platelet Volume 8.6 fL (7.4-10.4); Nucleated Red Blood Cells % 0 % (-); Platelet Count 205 10^3/uL (130-400); Red Cell Dist. Width 12.8 % (11.5-14.5); White Blood Cell Count 5.8 10^3/uL (4.8-10.8)
[2024-07-30 07:19] LABS: Erythrocyte Sed Rate 9 mm/hour (0-20)
[2024-07-30 07:38] LABS: C-Reactive Protein < 5.00 mg/L (0.0-10.00)
[2024-07-30 07:41] LABS: ALT (SGPT) 34 U/L (0-50); AST (SGOT) 24 U/L (17-59); Albumin 4.6 g/dl (3.5-5.0); Alkaline Phosphatase 40 U/L (38-126); Blood Urea Nitrogen 32 mg/dl (9-20); Calcium 9.4 mg/dl (8.4-10.2); Carbon Dioxide 26 mmol/L (22-30); Chloride 109 mmol/L (98-107); Glucose 118 mg/dl (70-99); HDL Cholesterol 58 mg/dl; LDL Cholesterol, Calculated 49 mg/dl; Potassium 4.4 mmol/L (3.5-5.1); Sodium 142 mmol/L (135-145); Total Bilirubin 0.6 mg/dl (0.2-1.3); Total Cholesterol 127 mg/dl (50-199); Total Protein 6.6 g/dl (6.3-8.2); Triglyceride 104 mg/dl (10-149); Very Low Density Lipoprotein 20 mg/dl (0-30); eGFR > 60.00
[2024-08-01 12:41] LABS: Lipoprotein a (Lp a) 74 mg/dL (<=29)
== END ==
LOC: REG 06:38
PROVIDERS: ATTENDING PHYSICIAN Physician Assistant; FAMILY PHYSICIAN Nurse Practitioner Family; OTHER PHYSICIAN Student in an Organized Health Care Education/Training Program
DX: E78.5 Hyperlipidemia, unspecified (principal)
CPT/HCPCS: 36415; 80053; 80061; 83695; 85025; 85652; 86140

== ENCOUNTER → 2024-08-08 16:00 | Outpatient (REF) | payer BC, SELFPAY ==
[2024-08-09 09:05] LABS: Glycohemoglobin (HgbA1c) 5.6 % (4.0-5.6)
== END ==
LOC: REG 16:00
PROVIDERS: ATTENDING PHYSICIAN Nurse Practitioner Family
DX: R73.03 Prediabetes (principal); E78.2 Mixed hyperlipidemia; Z00.00 Encounter for general adult medical examination without abnormal findings
CPT/HCPCS: 36415; 83036; 84443

== ENCOUNTER → 2024-08-13 16:09 | Outpatient (REF) | payer BC, SELFPAY ==
[2024-08-13 17:27] LABS: PSA, Total - Screen 0.76 ng/ml (0.0-4.0)
== END ==
LOC: REG 16:09
PROVIDERS: ATTENDING PHYSICIAN Nurse Practitioner Family
DX: Z00.00 Encounter for general adult medical examination without abnormal findings (principal)
CPT/HCPCS: 36415; G0103

== ENCOUNTER 2024-08-15 16:20 | Outpatient (RCR) | payer BC, SELFPAY | END 2024-08-15 23:59 | disposition home or self-care (01) | LOC: RPT 16:20 | PROVIDERS: ATTENDING PHYSICIAN Student in an Organized Health Care Education/Training Program; FAMILY PHYSICIAN Nurse Practitioner Family | DX: M76.60 Achilles tendinitis, unspecified leg (principal); Z73.6 Limitation of activities due to disability | CPT/HCPCS: 97010; 97110; 97140 ==

== ENCOUNTER 2024-09-17 17:04 | Outpatient (RCR) | payer BC, SELFPAY | END 2024-09-17 23:59 | disposition home or self-care (01) | LOC: RPT 17:04 | PROVIDERS: ATTENDING PHYSICIAN Student in an Organized Health Care Education/Training Program; FAMILY PHYSICIAN Nurse Practitioner Family | DX: M76.60 Achilles tendinitis, unspecified leg (principal); Z73.6 Limitation of activities due to disability | CPT/HCPCS: 97110; 97112; 97140 ==

== ENCOUNTER 2024-09-24 17:23 | Outpatient (RCR) | payer BC, SELFPAY | END 2024-09-24 23:59 | disposition home or self-care (01) | LOC: RPT 17:23 | PROVIDERS: ATTENDING PHYSICIAN Student in an Organized Health Care Education/Training Program; FAMILY PHYSICIAN Nurse Practitioner Family | DX: M76.60 Achilles tendinitis, unspecified leg (principal); M76.62 Achilles tendinitis, left leg (principal); Z73.6 Limitation of activities due to disability; R26.2 Difficulty in walking, not elsewhere classified; M62.81 Muscle weakness (generalized) | CPT/HCPCS: 97110; 97112; 97140 ==

== ENCOUNTER 2024-09-30 05:46 | Inpatient (IN) | payer BC, SELFPAY ==
[2024-09-30] VITALS (16 sets, daily range): BP systolic 109–172; BP diastolic 50–132; BMI 39.2; BMI 36.9
--- NOTE | 2024-09-30 01:40 | EDRN ---
Pt woke on the sofa and went to lie down in his bedroom and got 'severe chest pain as soon as I laid down.' Pt got up and took 1 sl ntg which helped 'somewhat.' Little sob and nausea. No diaphoresis, vomiting, fever/chills/cough. L side chest
pain radiated into L arm, described as 'tight like someone standing on my chest.' Pt ate meatloaf and green beans for dinner. Pt adds he has 'a wicked headache.' Similar symptoms about 1.5 years ago which prompted ED visit resulting in a cardiac
cath. Pt did not need stents at that time. Also found pt had gallstones.
[2024-09-30 01:59] LABS: Hematocrit 41.5 % (39.0-52.0); Hemoglobin 14.7 g/dL (13.0-18.0); Mean Corp Hgb Conc. 35.4 g/dL (33.0-37.0); Mean Corpuscular Volume 92.2 fL (80.0-94.0); Nucleated Red Blood Cells % 0 % (-); Platelet Count 187 10^3/uL (130-400); Red Cell Dist. Width 12.3 % (11.5-14.5)
[2024-09-30] MEDS: ASPIRIN 325 MG PO (01:59)
[2024-09-30] MEDS: NITROSTAT (SUBLINGUAL) 0.4 MG SL ×3 (02:01→02:15)
--- NOTE | 2024-09-30 02:02 | ED.GENMED ---
History of Present Illness
General
Chief Complaint: Chest Pain
Source: patient and records
Exam Limitations: none
Time Seen by Provider: 09/30/24 01:33
Nursing documentation reviewed up to this point in time: agreed with
History of Present Illness
History of Present Illness:
63-year-old male history of nonobstructive heart disease by catheterization from Dr. Bowling treated medically with no stents, been compliant with his meds, presents with fairly severe mid chest pain into his left arm after waking up around 12:30
AM, has a strong family history of heart disease apparently, also has known gallstones, states his pain is different his gallbladder attack, as he Dr. Sullivan for this has not undergone gallbladder removal
Past History
Past History
ED Past Medical History: Asthma, CAD, Hypercholesterolemia and Other (History of depression)
ED Past Surgical History: Other (Gallstone)
Social History
Tobacco: Non-smoker
Alcohol: None
Drug: None
Personal:
Living: with family
Employment: Employed
Family History
Family History: Diabetes, Hypertension and CAD
Review of Systems
Review of Systems
All Other Systems: Not applicable
Constitutional: Denies fever
Respiratory: Reports trouble breathing
Cardiac: Reports chest pain; Denies diaphoresis or palpitations
ABD/GI: Reports nausea; Denies abdominal pain
: Reports no symptoms
Musculoskeletal: Reports no symptoms
Skin: Reports no symptoms
Neurological: Reports no symptoms
Phy Exam
Physical Exam
Physical Exam:
Physical Exam
General: 63 male looks uncomfortable
Neck: No jaundice
Heart: s1/s2 regular rate and rhythm, no murmur. equal radial pulses.
Lungs: no acute respiratory distress. clear bilaterally
Abdomen: Nontender
Neuro: alert and oriented. no focal neurological deficits
Skin: no rash
Psychiatric: well kept. interactive and cooperative
Extremities: no edema. no calf tenderness.
Scores
Heart Score for Chest Pain Patients
STEMI patient?: No
History: Highly Suspicious
ECG: Nonspecific Repolarization
Age: >/= 65 years
Risk Factors: >/= 3 Risk Factors or History of CAD
Troponin: >1 - <3 x Normal Limit
Heart Score for Chest Pain Patients: 8
Heart Score Risk: 72.7 % MACE over next 6 weeks
Course
Orders/Labs/Results
Orders:
Orders
09/30/24 01:11
ECG [Electrocardiogram (*1)] Urgent
Reason for Study: Chest Pain
EKG- Treatment ONCE
09/30/24 01:50
Complete Blood Count/With Diff Urgent
Comprehensive Metabolic Panel Urgent
Lipase Urgent
Comment: ADDED
Troponin I Urgent
09/30/24 01:52
Add On- LAB Urgent
Tests Added?: lipase
Aspirin 325 mg PO NOW STA
Nitroglycerin Sublingual [Nitrostat (Sublingual)] 0.4 mg SL [id number] PRN
CR Chest Portable - 1 View Urgent
Comment:
Reason For Exam: cp
Reason Study Needs to be Portable: Patient Unstable
09/30/24 03:40
Troponin I Urgent
09/30/24 04:31
PTT Urgent
Comment: Obtain baseline before beginning heparin infusion if not already collected
Heparin 4,000 units IV NOW STA
Nursing to Place Non Medication Order As Directed
Physician Order: PTT 6 hours after initial start of Heparin infusion
09/30/24 04:45
Heparin 62056 Units/250 ml 25,000 units in 250 ml IV PER PROTOCOL
Weight to be used for heparin protocol in kilograms (kg):: 110
Protocol:: Cardiac Tx/Acute Coronary
PTT Goal Range to be used:: PTT 73 to 111 seconds
Order type:: Initial
INITIAL Infusion Dose (UNITS/KG/hr) & then follow protocol:: 12 units/kg/hr
Infusion Dose in UNITS/hr & then follow protocol (UNITS/hr):: 1,000
INFUSION RATE in mL/hr & then follow protocol (mL/hr):: 10
PTT less than or equal to 64 seconds:: Increase rate by 200 units/hr (+ 2 mL/hr)
PTT 64.1 to 72.9 seconds:: Increase rate by 100 units/hr (+ 1 mL/hr)
PTT 73 to 111 seconds:: Target Range. No change in rate.
PTT 111.1 to 130.9 seconds:: Decrease rate by 100 units/hr (- 1 mL/hr)
PTT 131 to 199.9 seconds:: HOLD for 1 hr. Then decrease rate by 200 units/hr (- 2 mL/hr)
PTT greater than or equal to 200 seconds:: HOLD for 2 hrs & Notify Provider. Then decrease by 200 units/hr (-
2 mL/hr)
Lab follow-up:: Each change, PTT q6h until 2 consecutive are therapeutic. Then PTT
daily.
Abnormal Lab Results
09/30/24 09/30/24
01:50 03:40
RBC 4.50 L 10^6/uL
(4.70-6.10)
MCH 32.7 H pg
(27.0-31.0)
Absolute Monos (auto) 0.7 H 10^3/uL
(0.1-0.6)
Immature Gran % 0.6 H %
(0-0.5)
Monocytes % 11.1 H %
(1.7-9.3)
Chloride 110 H mmol/L
(98-107)
BUN 24 H mg/dl
(9-20)
Glucose 139 H mg/dl
(70-99)
Alkaline Phosphatase 37 L U/L
(38-126)
Troponin I 0.156 H* D ng/ml
Total Protein 6.2 L g/dl
(6.3-8.2)
09/30/24 01:50
09/30/24 01:50
Vital Signs
Initial and Last Documented VS:
Initial Vital Signs
Temp Pulse Resp BP Pulse Ox
97.6 F 66 26 172/80 98
09/30/24 01:19 09/30/24 01:19 09/30/24 01:19 09/30/24 01:19 09/30/24 01:19
Last Documented Vital Signs
Temp Pulse Resp BP Pulse Ox
97.6 F 55 17 109/50 96
09/30/24 01:19 09/30/24 04:12 09/30/24 04:12 09/30/24 04:12 09/30/24 04:12
MDM/Problems Addressed
Differential Diagnosis Includes:
ACS, angina, noncardiac chest pain doubt PE or dissection
MDM/Problems Addressed:
Chest pain
Chronic conditions affecting care: HTN and CAD
Acute Exacerbation and/or Progression of Chronic Illness: HTN and CAD
*Pulse Oximetry
SaO2: 98
Oxygen Mode of Delivery: Room air
Patient hypoxic: no
*EKG
Interpreted by ED Provider?: Yes
Interpretation: normal
Comparison EKG: no changes
Heart Rate: 65
Rate: normal
Rhythm: sinus
Ischemia: T-wave inversion
*Rn Forensic Interpretation
Rate: normal
Interpretation: normal
Heart Rate: 70
Rhythm: sinus
*Critical Care Note
Total Time (30-74mins, 75-104mins- exclusive of procedures): 30
Data Reviewed
Review of Other/Old Records Reveals: Labs and Operative Reports
Source: patient and records
Prescriptions/Medications Considered But Not Given:
IV nitroglycerin
Further Testing Considered But Not Given:
CT of the chest
Update Note
Update Note:
3 AM, prior cath report noted multivessel nonobstructive CAD, treated medically, here he is chest pain-free after sublingual nitro troponin noted will repeat in a few hours likely keep for cardiology evaluation
4:30 AM second troponin noted trending up at this time patient's chest pain-free will start unfractionated heparin message sent to cardiology and hospitalist
ED Attending Note
-
Portions of this chart may have been created with voice recognition software.� Occasional wrong word or��sound alike� substitutions may have occurred due to the inherent limitations of voice recognition software.
Discharge Plan
Departure
Patient Disposition: Admit
Date of Disposition: 09/30/24
Time of Disposition: 04:39
Admit to: IVU
Presentation/result/management discussed w/ accepting MD/DO: Hospitalist
Patient with high blood pressure during this ER visit?: No
Condition: Fair
Covid-19: Not Applicable
Discharge Problem:
ACS (acute coronary syndrome)
Prescriptions:
No Action
aspirin 81 MG tablet,delayed release (DR/EC)
81 mg PO DAILY Qty: 1 0RF
meloxicam 15 mg Tablet
15 mg PO DAILY PRN (Reason: pain)
folic acid 1 mg Tablet
1 mg PO DAILY
magnesium 250 mg Tablet
250 mg PO DAILY
albuterol sulfate 90 mcg/actuation Hfa Aerosol Inhaler
1 puff INHALATION Q4 PRN (Reason: SOB)
omega-3 fatty acids Capsule
1,250 mg PO DAILY
Simponi ARIA 12.5 mg/mL Solution
212 mg IV Q8W
atorvastatin 80 mg tablet
80 mg PO QPM Qty: 90 5RF
nitroglycerin 0.4 mg tablet, sublingual
0.4 mg sublingual [id number] PRN (Reason: chest pain) Qty: 25 5RF
methotrexate sodium 2.5 mg Tablet
20 mg PO MO
losartan 25 mg Tablet
25 mg PO DAILY
ezetimibe 10 mg Tablet
10 mg PO DAILY
Referrals:
Destiny Douglas CRNP [Family Provider]
Interventions
Interventions:
*Risk Screen - Suicide Last Done: 09/30/24 01:19
*General Assessment Last Done: 09/30/24 01:34
*Neglect/Abuse Screening Last Done: 09/30/24 01:19
*ED- Fall Risk Assessment Last Done: 09/30/24 01:53
ED- Cardiac Assessment Last Done: 09/30/24 01:53
Discharge Date and Time
Print Language: CROATIAN
[2024-09-30 02:13] LABS: ALT (SGPT) 43 U/L (0-50); AST (SGOT) 26 U/L (17-59); Albumin 4.3 g/dl (3.5-5.0); Alkaline Phosphatase 37 U/L (38-126); Blood Urea Nitrogen 24 mg/dl (9-20); Calcium 9.2 mg/dl (8.4-10.2); Carbon Dioxide 24 mmol/L (22-30); Chloride 110 mmol/L (98-107); Estimated Creatinine Clearance > 125 ml/min; Glucose 139 mg/dl (70-99); Potassium 3.9 mmol/L (3.5-5.1); Sodium 140 mmol/L (135-145); Total Protein 6.2 g/dl (6.3-8.2); eGFR > 60.00
[2024-09-30 02:24] LABS: Troponin I 0.013 ng/ml
[2024-09-30 02:49] LABS: Lipase 82 U/L (23-300)
[2024-09-30 04:29] LABS: Troponin I 0.156 ng/ml
--- NOTE | 2024-09-30 04:34 | EDRN ---
Called pharmacy to verify heparin
[2024-09-30] MEDS: HEPARIN 4000 UNITS IV (04:52)
[2024-09-30] MEDS: HEPARIN 25000 UNITS/250 ML IV (04:53)
[2024-09-30 05:07] LABS: APTT 26.1 Sec (23.4-35.0)
--- NOTE | 2024-09-30 05:34 | HPS.HSE ---
Family Physician
-
Family Physician: RAMONA Doss
Chief Complaint
-
Chest Pain
History of Present Illness
Patient is a 63y M with PMH significant for RA, hypertension and non-occlusive coronary disease who presents to ED complaining of chest pain. Patient states that he felt well earlier this evening. He fell asleep on the couch. He woke in the
middle of the night and went into bed. Upon lying down, patient developed severe, crushing substernal chest pain. He sat back up but his pain did not improve. He took a sublingual nitroglycerin with perhaps minimal improvement in his symptoms.
He had mild SOB. No diaphoresis or nausea. Patient denies any prior h/o similar pain. With persistent chest discomfort, he presented to the ED for further evaluation.
At the time of my examination he is resting comfortably and feels markedly improved from arrival.
Patient had some abdominal discomfort about one year ago which was ultimately attributed to cholelithiasis (he still has his gallbladder).
He underwent cardiac cath at that time which showed triple vessel, non-occlusive CAD. No stents needed. He has been managed with medical therapy since that time.
Medical History
Past Medical History
Past Medical History: Reports Other
Additional Past Medical History:
Non-Occlusive Coronary Disease
Hypertension
Cholelithiasis
Obesity
Rheumatoid Arthritis
DDD
Past Surgical History: Reports Other
Additional Past Surgical History:
Cervical Laminectomy / Fusion
Left Achilles Repair
Left Carpal Tunnel Surgery
Cardiac Cath - No Stents (05/2023)
Social History
Tobacco: Non-smoker
Alcohol: Occasional
Drug: None
Family History
Family History: Other (Father: at 40y - [place] PGF: at 42y - [place] Brother: CAD Sister: CAD)
Allergies / Home Medications
Allergies reflects when Allergies were last updated in [employer].
Home Medications with original date entered in [employer]
Allergy/Medication List:
Allergies
Allergy/AdvReac Type Severity Reaction Status Date / Time
lisinopril Allergy Unknown Verified 09/30/24 01:22
Home Medications
aspirin 81 mg tablet,delayed release 81 mg PO DAILY #1 tab 02/15/18
albuterol sulfate 90 mcg/actuation aerosol inhaler 1 puff inhalation Q4 PRN SOB 06/02/23
atorvastatin 80 mg tablet 80 mg PO QPM #90 tabs 06/02/23
folic acid 1 mg tablet 1 mg PO DAILY 06/02/23
golimumab 12.5 mg/mL intravenous solution (Simponi ARIA) 212 mg IV Q8W 06/02/23
magnesium 250 mg tablet 250 mg PO DAILY 06/02/23
meloxicam 15 mg tablet 15 mg PO DAILY PRN pain 06/02/23
nitroglycerin 0.4 mg sublingual tablet 0.4 mg sublingual [id number] PRN chest pain #25 tabs 06/02/23
omega-3 fatty acids 1,250 mg PO DAILY 06/02/23
ezetimibe 10 mg tablet 10 mg PO DAILY 09/30/24
losartan 25 mg tablet 25 mg PO DAILY 09/30/24
methotrexate sodium 2.5 mg tablet 20 mg PO MO 09/30/24
Review of Systems
-
History Source: Patient
A 12 point ROS was completed and negative except as noted: Yes
Constitutional: Denies Fever or Chills
EENT: Denies Sore Throat
Respiratory: Reports Trouble Breathing; Denies Cough
Cardiac: Reports Chest Pain; Denies Diaphoresis or Palpitations
Abdomen/GI: Denies Abdominal Pain, Nausea, Vomiting or Diarrhea
: Denies Dysuria
Musculoskeletal: Denies Joint Pain or Edema
Neurological: Denies Dizzy or Headache
Psych: Denies Depression or Anxiety
Physical Exam
Vital Signs
Vital Signs
Temp Pulse Resp BP Pulse Ox
97.6 F 55 17 109/50 96
09/30/24 01:19 09/30/24 04:12 09/30/24 04:12 09/30/24 04:12 09/30/24 04:12
Physical Exam
General: Other (63y M in no acute distress.)
HEENT: Moist mucous membranes and PERRLA
Respiratory: Clear; No Wheezes, Rales or Rhonchi
Cardiac: S1/S2 and Murmur (II/ SHANNAN)
GI: Soft, Non Tender, Non Distended and Normal Bowel Sounds
Musculoskeletal: No Clubbing, No Cyanosis and No Edema
Neuro: AO x 3
Laboratory Results
-
09/30/24 01:50
09/30/24 01:50
Laboratory Results
APTT 26.1 Sec (23.4-35.0) 09/30/24 04:45
Total Bilirubin 0.4 mg/dl (0.2-1.3) 09/30/24 01:50
AST 26 U/L (17-59) 09/30/24 01:50
ALT 43 U/L (0-50) 09/30/24 01:50
Alkaline Phosphatase 37 U/L (38-126) L 09/30/24 01:50
Troponin I 0.156 ng/ml H* D 09/30/24 03:40
Lipase 82 U/L (23-300) 09/30/24 01:50
Impression/Plan
-
A/P: Patient is a 63y M with PMH significant for non-occlusive coronary disease, hypertension and RA who presents to ED complaining of crushing chest pain in the middle of the night tonight.
NSTEMI / ACS
- Admit for further evaluation and treatment.
- Initial EKG with lateral ST depressions that appear somewhat better on follow-up tracing.
- Troponin increased from 0.013 to 0.156. Continue to follow to peak.
- Pain improved after additional NTG in the ED. Follow for new / recurrent symptoms.
- Continue IV heparin, ASA, statin, etc.
- Cardiology evaluation for additional recommendations / probable repeat cath.
Benign Hypertension
- Stable. BP on the lower side after SL NTG in the ED.
- Hold losartan acutely pending cath.
- May require med regimen adjustment / addition of beta-shola, etc given ACS.
Rheumatoid Arthritis
- Stable. No acute joint pains, etc.
- Hold MTX, Simponi acutely.
Obesity due to excess calories
- Affects all aspects of care.
- Encourage healthy diet and exercise as tolerated with goal of weight loss.
DVT Prophylaxis: On IV heparin
Code Status: Full
--- NOTE | 2024-09-30 06:51 | EDRN ---
Report given to Jaki in IVU
--- NOTE | 2024-09-30 07:45 | W.PN.HOSP.TC ---
Today's Communication/Plan
-
See plan
Assessment / Plan
Assessment / Plan
Physical Exam
General: Other (63y M in no acute distress.)
HEENT: Moist mucous membranes and PERRLA
Respiratory: Clear; No Wheezes, Rales or Rhonchi
Cardiac: S1/S2 and Murmur (II/ SHANNAN)
GI: Soft, Non Tender, Non Distended and Normal Bowel Sounds
Musculoskeletal: NNo Cyanosis and No Edema
Neuro: AO x 3
Assessment/Plan
63y M with H significant for RA, hypertension and non-occlusive coronary disease who presented to the [facility] ED complaining of severe, crushing substernal chest pain. He took a sublingual nitroglycerin with perhaps minimal improvement in his
symptoms. He had mild SOB. No diaphoresis or nausea. Patient denied any prior h/o similar pain. With persistent chest discomfort, he presented to the [facility] ED for further evaluation.
NSTEMI/ACS
- Initial EKG with lateral ST depressions that appear somewhat better on follow-up tracing.
- Troponins increased to 8.290
- Pain improved after additional NTG in the ED. Follow for new / recurrent symptoms.
- Continue IV heparin, ASA, statin, etc.
- Cardiology evaluation for additional recommendations: cardiac cath on 09/30/24: 'Right dominant circulation with luminal irregularities in the body of the RCA, a 70-80% unchanged lesion in the ostium of the RPDA, a 70%
lesion in the ostium of the conus, a 70% lesion in the proximal margin of the conus, a 90% lesion in the mid vessel of the conus as it becomes the RV marginal, luminal irregularities in the circumflex, a 40% lesion in the ostial/
proximal ramus with a 70% lesion in a small upper branch, a 40% lesion in the mid LAD, a 30% lesion in the distal LAD and an acutely occluded first diagonal, status post successful PCI (overlapping [employer] [place]
2.0 x 22 JACEK, 2.5 x 8 JACEK, postdilated with a 2.0 and 2.5 NC balloon) with reduction in stenosis to 0%, restoring JESSICA-3 flow,' as per cardiology report
- Dual antiplatelet therapy with aspirin and ticagrelor for at least 12 months, followed by aspirin indefinitely.
- High intensity statin
- Will need cardiac rehab
Coronary Artery Disease
- Nonobstructive disease by cardiac catheterization 05/2023
Benign Hypertension
- Stable. BP on the lower side after SL NTG in the ED.
- Hold losartan acutely pending cath.
- May require med regimen adjustment / addition of beta-shola, etc given ACS.
Rheumatoid Arthritis
- Stable. No acute joint pains, etc.
- Hold MTX, Simponi acutely.
History of Cholelithiasis
Obesity due to excess calories
- Affects all aspects of care.
- Encourage healthy diet and exercise as tolerated with goal of weight loss.
DVT Prophylaxis: Heparin subq
Code Status: Full Code
Anticipated Discharge: Within 24 hours
Subjective/Interval History
-
Date of Service: September 30, 2024
Patient was seen and examined. His chest pain had improved, denied any new significant symptoms or complaints.
Objective Data
-
Labs:
Laboratory Results
09/30/24 09/30/24 09/30/24
01:50 04:45 11:00
WBC 6.4
Hgb 14.7
Hct 41.5
Plt Count 187
APTT 26.1 Pending
Sodium 140
Potassium 3.9
Chloride 110 H
Carbon Dioxide 24
BUN 24 H
Creatinine 0.7
Glucose 139 H
Calcium 9.2
Total Bilirubin 0.4
AST 26
ALT 43
Alkaline Phosphatase 37 L
Vital Signs:
Vital Signs
Temp Pulse Resp BP Pulse Ox
97.6 F 57 18 139/64 98
09/30/24 01:19 09/30/24 06:00 09/30/24 06:00 09/30/24 06:00 09/30/24 05:46
--- NOTE | 2024-09-30 08:45 | CON.CAR ---
Addendum entered and electronically signed by Matthew Arenas MD 09/30/24 14:37:
I saw and examined the patient.
The REFRIGERATION HOUSEMAN's note was reviewed and I agree with the note.
Comment: We will progress to coronary angiogram and likely PCI/revascularization for his NSTEMI.
Original Note:
Consultation
Consultation Request
Date/Time Consultation Requested: 09/30/2024 05:10
Date/Time Consultation Performed: 09/30/2024 08:00
Requesting Provider: Dr. Bird
Performing Provider: RAMONA Landry for Dr. Arenas
Reason for Consultation: Chest pain
Medical History
-
Chief Complaint: Chest pain
History of Present Illness:
Eddie Armstrong is a 63-year-old male with multivessel nonobstructive CAD, hypertension, hypercholesterolemia, RA, and prior CVA who presented to the emergency department with a chief complaint of chest pain. He fell asleep on the couch. He went to
his bed. After laying down in bed he had sudden onset of midsternal anterior chest pressure. It radiated up his neck and into his left arm. He endorses associated nausea. The chest pain lasted for at least one hour. He tried sublingual
nitroglycerin at home. The pain persisted. He achieved relief after arrival to the emergency department. Initial troponin 0.013, troponin 2 hours later 0.156. Lateral ST depression on EKG. He is currently chest pain-free.
Past Medical History
Past Medical History: CAD, CVA (Cerebellar infarct), HTN, Hypercholesterolemia and Other
Social History
Tobacco: Non-Smoker
Alcohol: Occasional (Social)
Drug: None
Personal:
Living: With Family
Employment: Employed ([employer])
Family History
Family History: Early CAD (Father with fatal OK at age 40. Paternal grandfather with fatal OK at age 42.)
Allergies / Home Medications
Allergy/AdvReac Type Severity Reaction Status Date / Time
lisinopril Allergy Unknown Verified 09/30/24 01:22
�Medication �Instructions �Recorded �Confirmed �Type
aspirin 81 mg tablet,delayed 81 mg PO DAILY #1 tab 02/15/18 09/30/24 Rx
release
albuterol sulfate 90 mcg/actuation 1 puff inhalation Q4 PRN SOB 06/02/23 09/30/24 History
aerosol inhaler
atorvastatin 80 mg tablet 80 mg PO QPM #90 tabs 06/02/23 09/30/24 Rx
folic acid 1 mg tablet 1 mg PO DAILY 06/02/23 09/30/24 History
golimumab 12.5 mg/mL intravenous 212 mg IV Q8W 06/02/23 09/30/24 History
solution (Simponi ARIA)
magnesium 250 mg tablet 250 mg PO DAILY 06/02/23 09/30/24 History
meloxicam 15 mg tablet 15 mg PO DAILY PRN pain 06/02/23 09/30/24 History
nitroglycerin 0.4 mg sublingual 0.4 mg sublingual [id number] PRN 06/02/23 09/30/24 Rx
tablet chest pain #25 tabs
omega-3 fatty acids 1,250 mg PO DAILY 06/02/23 09/30/24 History
ezetimibe 10 mg tablet 10 mg PO DAILY 09/30/24 09/30/24 History
losartan 25 mg tablet 25 mg PO DAILY 09/30/24 09/30/24 History
methotrexate sodium 2.5 mg tablet 20 mg PO MO 09/30/24 09/30/24 History
Review of Systems
-
History Source: Patient
All other systems: Negative unless noted
Constitutional: No Symptoms
EENT: No Symptoms
Respiratory: No Symptoms
Cardiac: No Symptoms
Abdomen/GI: No Symptoms
: No Symptoms
Musculoskeletal: No Symptoms
Skin: No Symptoms
Neurological: No Symptoms
Endocrine: No Symptoms
Hematologic/Lymphatic: No Symptoms
Physical Exam
Vital Signs
Temp Pulse Resp BP Pulse Ox
97.8 F 57 18 139/64 98
09/30/24 07:47 09/30/24 06:00 09/30/24 07:47 09/30/24 06:00 09/30/24 07:47
Lab Results
09/30/24 01:50
09/30/24 01:50
Troponin I 0.156 ng/ml H* D 09/30/24 03:40
Physical Exam
General: Well Developed, Well Nourished, No Apparent Distress and Comfortable
HEENT: Normocephalic, Anicteric and Moist Mucous Membranes
Respiratory: Clear and Non Labored Respirations
Cardiac: S1/S2, Regular Rhythm and Murmur (II/)
Breast: Deferred by me
GI: Soft, Non Tender, Non Distended and Normal Bowel Sounds
Rectal: Deferred by Provider
Genito-urinary: No Costovertebral Tender
Musculoskeletal: No Clubbing, No Cyanosis and No Edema
Skin: Warm and Dry
Neuro: AO x 3
Hematologic/Lymphatic: No Lymphadenopathy
Psych: Calm
Impression / Plan
-
I/P: 63M with multivessel nonobstructive CAD, hypertension, hypercholesterolemia, RA, and prior CVA who presented to the emergency department with a chief complaint of chest pain
Outpatient director risk: Dr. Lam
NSTEMI
- Chest pain-free since approximately 2 AM
- Troponin currently 0.156, trend, I anticipate this will trend up
- EKG with lateral ST depression
- Continue heparin and aspirin
- Echocardiogram
- Cardiac catheterization today
CAD
- Nonobstructive disease by cardiac catheterization 05/2023
- Currently being medically managed
Aortic stenosis, mild
- Update TTE
Hypertension
- Continue losartan 25 mg
Hypercholesterolemia
- Lipid panel: TC 130, LDL 53, HDL 56, TG 108 on atorvastatin 80 mg and Zetia 10 mg
- LP(a) as an outpatient 76
RA, on methotrexate, follows with rheumatology
Prior CVA, seen on imaging, cerebellar infarct
Obesity, BMI 36.9, consider GLP-1 as an outpatient
Scores
JESSICA for NSTEMI
Age >/= 65: No
>/=3 CAD risk factors-HTN,High Chol,Fam hx CAD,DM,Smoker: Yes
Known CAD (stenosis >/=50%): Yes
ASA use in past 7 days: Yes
Severe angina (>/= 2 episodes in 24 hrs): No
EKG ST Changes >/= 0.5mm: No
Positive cardiac marker: Yes
Score: 4
Risk at 14 days-mortality, new/recurrent OK, severe ischemia: Intermediate Risk- 20% Risk at 14 days- all cause mortality, new or recurrent OK, or severe recurrent ischemia requiring urgent revascularization
[2024-09-30 08:46] LABS: HDL Cholesterol 56 mg/dl; LDL Cholesterol, Calculated 53 mg/dl; Very Low Density Lipoprotein 21 mg/dl (0-30)
[2024-09-30] MEDS: FOLVITE 1 MG PO (08:58)
[2024-09-30] MEDS: ASPIR LOW (ENTERIC COATED) 81 MG PO (08:59)
[2024-09-30 09:03] LABS: Troponin I 2.060 ng/ml
[2024-09-30 11:00] LABS: Glycohemoglobin (HgbA1c) 5.4 % (4.0-5.6)
[2024-09-30 11:02] LABS: APTT 39.7 Sec (23.4-35.0)
[2024-09-30 13:31] LABS: ACT-LR - POC 374 Seconds (116-155)
[2024-09-30 13:46] LABS: ACT-LR - POC > 397 Seconds (116-155)
[2024-09-30 13:59] LABS: Troponin I 8.290 ng/ml
[2024-09-30] MEDS: COZAAR 25 MG PO (14:29)
--- NOTE | 2024-09-30 14:56 | CM ---
Chart reviewed. 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 Plan is for the patient to return home. CM to follow
--- NOTE | 2024-09-30 14:57 | CM ---
Pricing on Brilinta through the patients pharmacy is $10 copay for the generic Ticagrelor and is available. Ada Rasmussen to send the script to the patient's pharmacy.
--- NOTE | 2024-09-30 14:59 | ITS.CL.ANGIO ---
B[employer]er - Angioplasty
Angioplasty
Procedure Report:
CARDIAC CATHETERIZATION REPORT
Date of Procedure: 09/30/2024
Referring: Matthew Arenas M.D.
INDICATION: Non-ST elevation myocardial infarction.
PROCEDURE:
1. Left heart catheterization.
2. Coronary angiography.
3. Successful PCI of the first diagonal.
A total of 47 minutes of procedural/moderate sedation was utilized. An independent medical parasitologist was present to assist with and help manage the patient's level of consciousness and physiologic status.
ACCESS:
1. 6 [place] right radial artery using a modified Seldinger technique delete the.
CATHETERS:
1. 5 [place]ian JR4.
2. 5 Colombian JL 3.5.
3. 6 [place] EBU 3.5 guiding catheter.
HEMODYNAMIC DATA
Weight (kg): 106.6
AO (s/d/x, mmHg): 132/78/99
LV (s/x mmHg): 134/17 (A wave to 29)
LEFT VENTRICULOGRAPHY: Not performed.
CORONARY ANGIOGRAPHY
Dominance: Right.
Left Main: Large size, trifurcating vessel. There is no coronary artery disease.
LAD: Normal size vessel giving rise to 1 significant diagonal. There is a 40% lesion in the mid vessel. There is a 30% lesion in the distal LAD. The first diagonal is acutely occluded in its midportion.
Ramus: Large size vessel supplying the majority of the anterolateral wall. There is a 40% lesion in the ostial/proximal portion of the vessel. There is a 70% lesion in a small upper branch.
Circumflex: Large size, nondominant vessel giving rise to 2 distal obtuse marginals. There are luminal irregularities throughout.
RCA: Large size, dominant vessel with a large conus branch that supplies the right ventricular acute marginal territory. There are luminal irregularities throughout the body of the RCA. There is a 70-80% lesion in the ostium of the RPDA,
unchanged from prior cardiac catheterization. There is a 70% lesion in the ostial margin of the conus. There is a 70% lesion in the proximal margin of the conus. There is a 90% lesion in the mid vessel as it becomes the RV marginal.
INTERVENTION(S)
1. Successful PCI of the 100% mid diagonal occlusion (overlapping Medtronic Miguel [place] 2.0 x 22 JACEK, 2.5 x 8 JACEK, postdilated with a 2.0 and 2.5 NC balloon) with reduction in stenosis to 0%, restoring JESSICA-3 flow.
Narrative:
The decision was made to proceed with percutaneous coronary intervention. The diagnostic catheter was removed over a wire and a 6Fr EBU 3.5 guiding catheter was advanced to the aortic root and seated in the left main coronary artery. Additional
heparin was given and a Power Turn Flex wire was advanced into the distal diagonal, beyond the occluded segment. The 100% mid D1 lesion was predilated with a 2.0 x 12 semi-compliant balloon to 12 juanito, restoring JESSICA-3 flow. The semi-compliant
balloon was removed and a Medtronic Miguel [place] 2.0 x 22 drug-eluting stent was advanced. The stent was deployed at 12 atmospheres. The stent balloon was removed. A 2.0 x 15 noncompliant balloon was advanced into the stent and the stent was
postdilated to 14 atmospheres. Angiography was performed in orthogonal views, confirming good stent expansion, but also demonstrated that the most proximal portion of the lesion was not fully covered. A Medtronic [place] frontier 2.5 x 8 JACEK was
advanced into the diagonal and positioned in an overlapping fashion to a proximally extend the stented segment. When we were satisfied with our stent position, the stent was deployed. The stent balloon was withdrawn. A 2.5 x 12 noncompliant
balloon was advanced into the proximal stent which overlapped with the distal stent. The proximal stent and stent overlap were postdilated to 14 juanito. The noncompliant balloon was withdrawn. Angiography was performed in orthogonal views
demonstrating good stent expansion and an excellent angiographic result. The coronary wire was withdrawn and the guide was disengaged from the artery. The catheter was removed over a standard J-wire.
Closure Device: Vascular band.
Radiation (mGy): 875
DAP (cm2.Gy): 36.3
Fluoroscopy time (minutes): 8
CONCLUSIONS
1. Right dominant circulation with luminal irregularities in the body of the RCA, a 70-80% unchanged lesion in the ostium of the RPDA, a 70% lesion in the ostium of the conus, a 70% lesion in the proximal margin of the conus, a 90% lesion in the
mid vessel of the conus as it becomes the RV marginal, luminal irregularities in the circumflex, a 40% lesion in the ostial/proximal ramus with a 70% lesion in a small upper branch, a 40% lesion in the mid LAD, a 30% lesion in the distal LAD and an
acutely occluded first diagonal, status post successful PCI (overlapping Medtronic Miguel [place] 2.0 x 22 JACEK, 2.5 x 8 JACEK, postdilated with a 2.0 and 2.5 NC balloon) with reduction in stenosis to 0%, restoring JESSICA-3 flow.
2. Mildly elevated filling pressures (LVEDP = 17 mmHg at 106.6 kg) with evidence of diastolic dysfunction (A wave to 29 mmHg).
RECOMMENDATIONS:
1. Expectant management after cardiac catheterization via right radial approach.
2. Limited weight bearing on the right wrist for one week.
3. Dual antiplatelet therapy with aspirin and ticagrelor for at least 12 months, followed by aspirin indefinitely.
4. Aggressive secondary prevention with high-dose, high potency statin. Goal LDL <55.
5. OMT/GDMT as hemodynamics tolerate.
6. Echocardiogram ordered and pending.
7. Referral to cardiac rehab.
Copy to: Matthew Arenas M.D., Riaz Lam M.D., PhD, RAMONA Doss
Raymond Smalls DO, FACC, FACP
--- NOTE | 2024-09-30 15:23 | PTCARENOTE ---
Rec'd pt from [facility]. EKG obtained. Pt currently has no complaints CP/SOB/discomfort at this time. Tele- SB. R radial external hemostasis band on. No bleeding/hematoma noted. Activity restrictions reviewed w/ pt and verbalizes understanding.
Currently in bed; call dior w/in reach.
[2024-09-30] MEDS: LIPITOR 80 MG PO (17:43)
[2024-09-30] MEDS: BRILINTA 90 MG PO (20:12)
[2024-09-30] MEDS: HEPARIN 5000 UNITS SC (20:12)
--- NOTE | 2024-09-30 20:33 | PTCARENOTE ---
Pt rec'd at change of shift asleep easily aroused. Right radial site with DDI good radial pulse.
Sinus on telemetry. trending troponin,specimen drawn awaiting results. Pt reports no cp. call rader within reach.
[2024-09-30 20:56] LABS: Troponin I 10.600 ng/ml
[2024-10-01 04:13] VITALS: BP 135/79
[2024-10-01 05:05] LABS: Hematocrit 42.7 % (39.0-52.0); Hemoglobin 14.9 g/dL (13.0-18.0); Mean Corp Hgb Conc. 34.9 g/dL (33.0-37.0); Mean Corpuscular Volume 93.2 fL (80.0-94.0); Platelet Count 197 10^3/uL (130-400); Red Cell Dist. Width 12.3 % (11.5-14.5)
[2024-10-01 05:27] LABS: Blood Urea Nitrogen 18 mg/dl (9-20); Calcium 9.2 mg/dl (8.4-10.2); Carbon Dioxide 23 mmol/L (22-30); Chloride 111 mmol/L (98-107); Estimated Creatinine Clearance 113 ml/min; Glucose 107 mg/dl (70-99); HDL Cholesterol 50 mg/dl; LDL Cholesterol, Calculated 43 mg/dl; Potassium 4.1 mmol/L (3.5-5.1); Sodium 139 mmol/L (135-145); Very Low Density Lipoprotein 40 mg/dl (0-30); eGFR > 60.00
[2024-10-01 05:39] LABS: Troponin I 5.190 ng/ml
--- NOTE | 2024-10-01 07:53 | W.PN.CD ---
Today's Communication / Plan
-
Increase Losartan
Ticagrelor is affordable $10/month
Likely d/c later today
Impression / Plan
-
I/P: 63M with multivessel nonobstructive CAD, hypertension, hypercholesterolemia, RA, and prior CVA who presented to the emergency department with a chief complaint of chest pain
Outpatient judicial reporter: Dr. Lam
NSTEMI s/p PCI to diagonal
- echo below
- DAPT 12 months
- LDL goal < 55
CAD
- as above
Aortic stenosis, mild
- Update TTE
Hypertension
- Increase losartan to 50 mg daily
Hypercholesterolemia
- Lipid panel: TC 130, LDL 53, HDL 56, TG 108 on atorvastatin 80 mg and Zetia 10 mg
- LP(a) as an outpatient 76
RA, on methotrexate, follows with rheumatology
Prior CVA, seen on imaging, cerebellar infarct
Obesity, BMI 36.9, consider GLP-1 as an outpatient
Subjective
Cath Sep 30 2024: CONCLUSIONS
1. Right dominant circulation with luminal irregularities in the body of the RCA, a 70-80% unchanged lesion in the ostium of the RPDA, a 70% lesion in the ostium of the conus, a 70% lesion in the proximal margin of the conus, a 90% lesion in the
mid vessel of the conus as it becomes the RV marginal, luminal irregularities in the circumflex, a 40% lesion in the ostial/proximal ramus with a 70% lesion in a small upper branch, a 40% lesion in the mid LAD, a 30% lesion in the distal LAD and an
acutely occluded first diagonal, status post successful PCI (overlapping Medtronic [place] 2.0 x 22 JACEK, 2.5 x 8 JACEK, postdilated with a 2.0 and 2.5 NC balloon) with reduction in stenosis to 0%, restoring JESSICA-3 flow.
2. Mildly elevated filling pressures (LVEDP = 17 mmHg at 106.6 kg) with evidence of diastolic dysfunction (A wave to 29 mmHg).
Echo Sep 30 2024: SUMMARY
1. Normal left ventricular systolic function.
2. Estimated ejection fraction 55 to 60%.
3. No significant valve abnormalities.
4. Compared to the previous echo there is no significant change.
Physical Exam
Vital Signs/Labs
Vital Signs
Temp Pulse Resp BP Pulse Ox
98.4 F 53 20 135/79 96
10/01/24 04:13 10/01/24 07:00 10/01/24 04:13 10/01/24 04:13 10/01/24 04:13
09/30/24 10/01/24 10/02/24
06:59 06:59 06:59
Actual Weight 242 lb 8.136 oz 235 lb 7.259 oz
10/01/24 04:18
10/01/24 04:18
APTT Cancelled 09/30/24 17:30
Triglycerides 202 mg/dl (10-149) H 10/01/24 04:18
LDL Cholesterol, Calc 43 mg/dl 10/01/24 04:18
VLDL Cholesterol, Calc 40 mg/dl (0-30) H 10/01/24 04:18
HDL Cholesterol 50 mg/dl 10/01/24 04:18
LAB Results
09/30/24 09/30/24 09/30/24
01:50 03:40 08:19
Troponin I 0.013 0.156 H* D 2.060 H* D
09/30/24 09/30/24 10/01/24
12:06 20:25 04:18
Troponin I 8.290 H* D 10.600 H* 5.190 H* D
Physical Exam
Constitutional: No acute distress and Comfortable
EENT: Anicteric
Cardiovascular: Rhythm & rate is regular
Respiratory: Respiratory effort normal and Lungs clear to auscul.
GI: Soft
Neuro/Psych: AO x 3
Other: Cath Site (c/d/i 2+ pulse)
Data Reviewed
-
Date of Service: October 01, 2024
Medical Decision Making: Reviewed Test Results
EKG: Tracing Personally Visualized and interpreted (sr)
Echo: Report Reviewed by me
Labs: Labs Reviewed by me
[2024-10-01 08:08] VITALS: BP 143/88
[2024-10-01 08:41] VITALS: BMI 36.2
[2024-10-01] MEDS: ASPIR LOW (ENTERIC COATED) 81 MG PO (08:47)
[2024-10-01] MEDS: ZETIA 10 MG PO (08:47)
[2024-10-01] MEDS: BRILINTA 90 MG PO (08:47)
[2024-10-01] MEDS: FOLVITE 1 MG PO (08:47)
[2024-10-01] MEDS: COZAAR 50 MG PO (08:47)
[2024-10-01] MEDS: HEPARIN 5000 UNITS SC (08:47)
--- NOTE | 2024-10-01 08:55 | W.PN.HOSP.TC ---
Today's Communication/Plan
-
Discharge today
Assessment / Plan
Assessment / Plan
Physical Exam
General: Not in acute distress
HEENT: Moist mucous membranes
Respiratory: Clear to Auscultation Bilaterally
Cardiac: S1/S2 and Murmur (II/ SHANNAN)
GI: Soft, Non Tender, Non Distended and Normal Bowel Sounds
Musculoskeletal: No Cyanosis and No Edema
Neuro: AO x 3
Assessment/Plan
63y M with PMH significant for RA, hypertension and non-occlusive coronary disease who presented to the [facility] ED complaining of severe, crushing substernal chest pain. He took a sublingual nitroglycerin with perhaps minimal improvement in his
symptoms. He had mild SOB. No diaphoresis or nausea. Patient denied any prior h/o similar pain. With persistent chest discomfort, he presented to the [facility] ED for further evaluation.
NSTEMI/ACS
- Initial EKG with lateral ST depressions that appear somewhat better on follow-up tracing.
- Troponins increased to 8.290
- Pain improved after additional NTG in the ED. Follow for new / recurrent symptoms.
- Continue IV heparin, ASA, statin, etc.
- Cardiology evaluation for additional recommendations: cardiac cath on 09/30/24: 'Right dominant circulation with luminal irregularities in the body of the RCA, a 70-80% unchanged lesion in the ostium of the RPDA, a 70%
lesion in the ostium of the conus, a 70% lesion in the proximal margin of the conus, a 90% lesion in the mid vessel of the conus as it becomes the RV marginal, luminal irregularities in the circumflex, a 40% lesion in the ostial/
proximal ramus with a 70% lesion in a small upper branch, a 40% lesion in the mid LAD, a 30% lesion in the distal LAD and an acutely occluded first diagonal, status post successful PCI (overlapping Medtronic [place]
2.0 x 22 JACEK, 2.5 x 8 JACEK, postdilated with a 2.0 and 2.5 NC balloon) with reduction in stenosis to 0%, restoring JESSICA-3 flow,' as per cardiology report
- Dual antiplatelet therapy with aspirin and ticagrelor for at least 12 months, followed by aspirin indefinitely.
- High intensity statin
- Will need cardiac rehab
Coronary Artery Disease
- Nonobstructive disease by cardiac catheterization 05/2023
History of Stroke
Benign Hypertension
- Stable.
- Increase Losartan to 50 mg daily
- May require med regimen adjustment / addition of beta-shola, etc given ACS.
Hyperlipidemia
- Continue Atorvastatin 80 mg and Zetia 10 mg
Rheumatoid Arthritis
- Stable. No acute joint pains, etc.
- Hold MTX, Simponi acutely.
History of Cholelithiasis
Obesity due to excess calories
- Affects all aspects of care.
- Encourage healthy diet and exercise as tolerated with goal of weight loss.
DVT Prophylaxis: Heparin subq
Code Status: Full Code
More than 30 minutes spent in discharge including
Final examination of the patient
Summarizing hospital stay
Instructions for continuing care to all relevant caregivers
Preparation of discharge records, prescriptions, and referral forms
Total time spent (in minutes): 36
Anticipated Discharge: Today
Subjective/Interval History
-
Date of Service: October 01, 2024
Patient was seen and examined. He denied any chest pain, shortness of breath or any other complaints.
Objective Data
-
Labs:
Laboratory Results
10/01/24
04:18
WBC 9.0
Hgb 14.9
Hct 42.7
Plt Count 197
Sodium 139
Potassium 4.1
Chloride 111 H
Carbon Dioxide 23
BUN 18
Creatinine 0.8
Glucose 107 H
Calcium 9.2
Vital Signs:
Vital Signs
Temp Pulse Resp BP Pulse Ox
98.3 F 56 16 143/88 98
10/01/24 08:06 10/01/24 08:47 10/01/24 08:06 10/01/24 08:47 10/01/24 08:06
I&O
09/30/24 10/01/24 10/02/24
06:59 06:59 06:59
Intake Total 980 / 980
Balance 980 / 980
--- NOTE | 2024-10-01 10:00 | PTCARENOTE ---
Received patient and assumed care of patient at 0645. Assessment completed and documented in shift assessment.
Patient is AAOX4, pleasant and cooperative. SB on monitor. R Radial CDI, + pulses. RA, CTA. Round abdomen, tolerating cholesterol lowering diet. Voiding in bathroom. Ambulatory in hallway. Potential D/C today.
[2024-10-01 12:29] VITALS: BP 124/79
--- NOTE | 2024-10-01 12:38 | CM ---
Chart reviewed. Patient and at bedside. Patient is independent of ADLS, lives with his in a apartment, 1st floor, 1 ADEEL, 0 DME. Plan is for the patient to return home. CM to follow
--- NOTE | 2024-10-01 13:13 | W.DCSUMMARY ---
Discharge Summary
Discharge Data
Date of Admission: 09/30/24
Date of Discharge: 10/01/24
Total time spent discharging patient (in min): 36
-
Pending Results: No
Hospital Course
63 y/o male with past medical history significant for RA, hypertension and non-occlusive coronary disease who presented to the [facility] ED complaining of chest pain. Patient was suspected to have NSTEMI in the setting of elevated troponins and EKG
changes suggestive of possible ischemia. Patient was started on Heparin Drip. Cardiac cath took place on 09/30/24 and it showed, as per circus roustabout's report:
'CONCLUSIONS
1. Right dominant circulation with luminal irregularities in the body of the RCA, a 70-80% unchanged lesion in the ostium of the RPDA, a 70% lesion in the ostium of the conus, a 70% lesion in the proximal margin of the conus, a 90% lesion in the
mid vessel of the conus as it becomes the RV marginal, luminal irregularities in the circumflex, a 40% lesion in the ostial/proximal ramus with a 70% lesion in a small upper branch, a 40% lesion in the mid LAD, a 30% lesion in the distal LAD and an
acutely occluded first diagonal, status post successful PCI (overlapping Medtronic Miguel [place] 2.0 x 22 JACEK, 2.5 x 8 JACEK, postdilated with a 2.0 and 2.5 NC balloon) with reduction in stenosis to 0%, restoring JESSICA-3 flow.
2. Mildly elevated filling pressures (LVEDP = 17 mmHg at 106.6 kg) with evidence of diastolic dysfunction (A wave to 29 mmHg).'
Patient was placed on dual antiplatelet therapy with aspirin and ticagrelor for at least 12 months, followed by aspirin indefinitely; patient was also placed on a high-intensity statin. Patient's Losartan was increased. Patient was doing well with
no significant complications, and he was stable for discharge.
Discharge Plan
-
Patient Disposition: Home (Routine Discharge)
Discharge Diagnosis/Procedures: NSTEMI, s/p angioplasty and stent x2 to Diagonal artery
Coronary Artery Disease
History of Stroke
Benign Hypertension
Hyperlipidemia
Rheumatoid Arthritis
History of Cholelithiasis
Obesity due to excess calories
Condition: Good
Diet: Low Cholesterol and Low Sodium
Driving Restrictions: No driving for 24 hours
Other Services: Cardiac Rehab
Stand Alone Forms: DC Instructions- Cath/EP Lab
Referrals:
[facility] [Outside] - 11/06/24 10:00 am
Referral Note: Cardiac Rehab Orientation appointment is on 11/06 at 10 AM
The Cardiac Rehab gym is located on the first floor of the [facility].
Zully Aparicio NP [Specified Professional Personl, Cardiology] - 10/30/24 9:40 am
Destiny Douglas CRNP [Family Provider] - in less than 1 week
Referral Note: Hospitalization follow-up
Additional Discharge Medication Instructions: Losartan dose has been increased to 50 mg daily (from 25 mg daily)
Ticagrelor is a new medication. You need to continue dual antiplatelet therapy with Aspirin and Ticagrelor for at least 12 months, followed by Aspirin indefinitely.
Prescriptions:
New
ticagrelor [Brilinta] 90 mg Tablet
90 mg PO BID Qty: 60 11RF
losartan 50 mg Tablet
50 mg PO DAILY Qty: 30 1RF
Continued
aspirin 81 MG tablet,delayed release (DR/EC)
81 mg PO DAILY Qty: 1 0RF
folic acid 1 mg Tablet
1 mg PO DAILY
magnesium 250 mg Tablet
250 mg PO DAILY
albuterol sulfate 90 mcg/actuation Hfa Aerosol Inhaler
1 puff INHALATION Q4 PRN (Reason: SOB)
omega-3 fatty acids Capsule
1,250 mg PO DAILY
atorvastatin 80 mg tablet
80 mg PO QPM Qty: 90 5RF
nitroglycerin 0.4 mg tablet, sublingual
0.4 mg sublingual [id number] PRN (Reason: chest pain) Qty: 25 5RF
ezetimibe 10 mg Tablet
10 mg PO DAILY
Held
Simponi ARIA 12.5 mg/mL Solution
212 mg IV Q8W
Hold Instructions: Resume on 10/15/24. Please review your 09/30/24 to 10/01/24 hospitalization with your clinical project assistant and ask them when you should resume this medication.
methotrexate sodium 2.5 mg Tablet
20 mg PO MO
Hold Instructions: Resume on 10/09/24. Please review your 09/30/24 to 10/01/24 hospitalization with your clinical project assistant and ask them when you should resume this medication.
Discontinued
meloxicam 15 mg Tablet
15 mg PO DAILY PRN (Reason: pain)
losartan 25 mg Tablet
25 mg PO DAILY
Discharge Orders:
Discharge Patient (As Directed); Ordered 10/01/24
Ordered By: Henrry Shultz
Care Plan Goals
Care Plan Goals:
Problem: Readiness for enhanced knowledge related to diagnosis and treatment plan
Goal: Understand your diagnosis and treatment plan needs, including medications if applicable.
Instructions: Know your diagnosis, underlying causes and treatment plan options, including medications if applicable. Consult with your health care team to learn about your diagnosis and treatment plan, including medications if applicable.
Discharge Date and Time
Discharge Date/Time: 10/01/24 14:13
Print Language: CUBAN
== END 2024-10-01 14:13 | disposition home or self-care (01) | DRG 322 ==
LOC: IVU 05:46
PROVIDERS: Internal Medicine Cardiovascular Disease; Nurse Practitioner; ADMITTING PHYSICIAN Hospitalist; ATTENDING PHYSICIAN Hospitalist; EMERGENCY PHYSICIAN Emergency Medicine; FAMILY PHYSICIAN Nurse Practitioner Family; OTHER PHYSICIAN Internal Medicine Cardiovascular Disease
PROC: 4A023N7 Measurement of Cardiac Sampling and Pressure, Left Heart, Percutaneous Approach (ICD-10-PCS; 2024-09-30)
PROC: 027035Z Dilation of Coronary Artery, One Artery with Two Drug-eluting Intraluminal Devices, Percutaneous Approach (ICD-10-PCS; 2024-09-30)
PROC: B2111ZZ Fluoroscopy of Multiple Coronary Arteries using Low Osmolar Contrast (ICD-10-PCS; 2024-09-30)
DX: I21.4 Non-ST elevation (NSTEMI) myocardial infarction (principal); I25.10 Atherosclerotic heart disease of native coronary artery without angina pectoris; K80.20 Calculus of gallbladder without cholecystitis without obstruction; E78.00 Pure hypercholesterolemia, unspecified; J45.909 Unspecified asthma, uncomplicated; M06.9 Rheumatoid arthritis, unspecified; E66.09 Other obesity due to excess calories; I10 Essential (primary) hypertension; F32.A Depression, unspecified; Z83.3 Family history of diabetes mellitus; Z79.82 Long term (current) use of aspirin; Z79.1 Long term (current) use of non-steroidal anti-inflammatories (NSAID); Z79.631 Long term (current) use of antimetabolite agent; Z68.36 Body mass index [BMI] 36.0-36.9, adult; Z98.1 Arthrodesis status; Z82.49 Family history of ischemic heart disease and other diseases of the circulatory system; Z88.8 Allergy status to other drugs, medicaments and biological substances; Z86.73 Personal history of transient ischemic attack (TIA), and cerebral infarction without residual deficits
CPT/HCPCS: 71045; 80048; 80053; 80061; 83036; 83690; 84484; 85025; 85027; 85347; 85730; 93005; 93306; 93458; 96374; 96375; 99152; 99153; 99291; C1725; C1874; C1894; C9600; Q9967

== ENCOUNTER 2024-10-18 17:35 | Outpatient (RCR) | payer BC, SELFPAY ==
[2024-10-09 14:18] LABS: Glucose - Point of Care 115 mg/dl (70-99)
[2024-10-09 14:49] LABS: Glucose - Point of Care 126 mg/dl (70-99)
== END 2024-10-18 23:59 | disposition home or self-care (01) ==
LOC: CRHB 17:35
PROVIDERS: ATTENDING PHYSICIAN Student in an Organized Health Care Education/Training Program
DX: I25.2 Old myocardial infarction (principal); Z95.5 Presence of coronary angioplasty implant and graft
CPT/HCPCS: 82962; 93797; 93798

== ENCOUNTER → 2024-10-26 09:22 | Outpatient (REF) | payer BC, SELFPAY ==
[2024-10-26 10:10] LABS: Hematocrit 43.6 % (39.0-52.0); Hemoglobin 15.1 g/dL (13.0-18.0); Mean Corp Hgb Conc. 34.6 g/dL (33.0-37.0); Mean Corpuscular Volume 91.8 fL (80.0-94.0); Nucleated Red Blood Cells % 0 % (-); Platelet Count 195 10^3/uL (130-400); Red Cell Dist. Width 11.9 % (11.5-14.5)
[2024-10-26 10:23] LABS: ALT (SGPT) 31 U/L (0-50); AST (SGOT) 24 U/L (17-59); Albumin 4.3 g/dl (3.5-5.0); Alkaline Phosphatase 65 U/L (38-126); Blood Urea Nitrogen 22 mg/dl (9-20); Calcium 9.3 mg/dl (8.4-10.2); Carbon Dioxide 24 mmol/L (22-30); Chloride 108 mmol/L (98-107); Glucose 183 mg/dl (70-99); Potassium 4.0 mmol/L (3.5-5.1); Sodium 138 mmol/L (135-145); Total Protein 6.3 g/dl (6.3-8.2); eGFR > 60.00
[2024-10-26 10:28] LABS: C-Reactive Protein < 5.00 mg/L (0.0-10.00)
== END ==
LOC: REG 09:22
PROVIDERS: ATTENDING PHYSICIAN Internal Medicine Rheumatology; FAMILY PHYSICIAN Nurse Practitioner Family
DX: M06.09 Rheumatoid arthritis without rheumatoid factor, multiple sites (principal)
CPT/HCPCS: 36415; 80053; 85025; 85652; 86140

== ENCOUNTER 2024-11-15 17:43 | Outpatient (RCR) | payer BC, SELFPAY | END 2024-11-15 23:59 | disposition home or self-care (01) | LOC: CRHB 17:43 | PROVIDERS: ATTENDING PHYSICIAN Student in an Organized Health Care Education/Training Program | DX: I25.2 Old myocardial infarction (principal); Z95.5 Presence of coronary angioplasty implant and graft | CPT/HCPCS: 93797; 93798; G0422; G0423 ==

== ENCOUNTER 2024-12-20 16:45 | Outpatient (RCR) | payer BC, SELFPAY | END 2024-12-20 23:59 | disposition home or self-care (01) | LOC: CRHB 16:45 | PROVIDERS: ATTENDING PHYSICIAN Student in an Organized Health Care Education/Training Program; FAMILY PHYSICIAN Family Medicine | DX: I21.4 Non-ST elevation (NSTEMI) myocardial infarction (principal); I25.2 Old myocardial infarction (principal); Z95.5 Presence of coronary angioplasty implant and graft; I25.10 Atherosclerotic heart disease of native coronary artery without angina pectoris | CPT/HCPCS: 93797; 93798 ==

== ENCOUNTER 2025-01-10 16:49 | Outpatient (RCR) | payer BC, SELFPAY ==
[2025-01-08 08:21] LABS: HDL Cholesterol 50 mg/dl; LDL Cholesterol, Calculated 42 mg/dl; Very Low Density Lipoprotein 16 mg/dl (0-30)
== END 2025-01-10 18:34 | disposition home or self-care (01) ==
LOC: CRHB 16:49
PROVIDERS: ATTENDING PHYSICIAN Student in an Organized Health Care Education/Training Program; FAMILY PHYSICIAN Nurse Practitioner Family
DX: I21.4 Non-ST elevation (NSTEMI) myocardial infarction (principal); I25.2 Old myocardial infarction (principal); I25.10 Atherosclerotic heart disease of native coronary artery without angina pectoris; Z95.5 Presence of coronary angioplasty implant and graft
CPT/HCPCS: 80061; 93797; 93798

== ENCOUNTER → 2025-01-23 08:01 | Outpatient (REF) | payer BC, SELFPAY ==
[2025-01-23 09:32] LABS: Hematocrit 47.9 % (39.0-52.0); Hemoglobin 16.3 g/dL (13.0-18.0); Mean Corp Hgb Conc. 34.0 g/dL (33.0-37.0); Mean Corpuscular Volume 95.8 fL (80.0-94.0); Nucleated Red Blood Cells % 0 % (-); Platelet Count 251 10^3/uL (130-400); Red Cell Dist. Width 13.0 % (11.5-14.5)
[2025-01-23 10:36] LABS: C-Reactive Protein < 5.00 mg/L (0.0-10.00)
[2025-01-23 10:43] LABS: ALT (SGPT) 49 U/L (0-50); AST (SGOT) 33 U/L (17-59); Albumin 5.1 g/dl (3.5-5.0); Alkaline Phosphatase 54 U/L (38-126); Blood Urea Nitrogen 19 mg/dl (9-20); Calcium 9.8 mg/dl (8.4-10.2); Carbon Dioxide 27 mmol/L (22-30); Chloride 103 mmol/L (98-107); Glucose 92 mg/dl (70-99); Potassium 4.0 mmol/L (3.5-5.1); Sodium 138 mmol/L (135-145); Total Protein 7.5 g/dl (6.3-8.2); eGFR > 60.00
== END ==
LOC: REG 08:01
PROVIDERS: ATTENDING PHYSICIAN Physician Assistant
DX: Z51.81 Encounter for therapeutic drug level monitoring (principal); M06.09 Rheumatoid arthritis without rheumatoid factor, multiple sites; M89.49 Other hypertrophic osteoarthropathy, multiple sites
CPT/HCPCS: 36415; 80053; 85025; 85652; 86140